=== PATIENT | female | born 1945 | race Caucasian/White ===

== ENCOUNTER → 2017-08-29 09:18 | Outpatient (CLI) | payer MEDICARE, OTHER, SELFPAY ==
--- NOTE | 2017-08-29 09:24 | US_ITS ---
STUDY: ABDOMINAL ULTRASOUND - RIGHT UPPER QUADRANT REASON FOR VISIT: Female, 71 years old. Epigastric pain. TECHNIQUE: Ultrasound evaluation of the right upper quadrant was performed with real-time and static velasquez-scale imaging. TECHNICAL QUALITY: Adequate. COMPARISON: None. FINDINGS: Liver: The liver measures 12.3 cm. There is normal echogenicity of the liver. The bile ducts are within normal limits. There is hepatic color flow. The direction of portal flow is hepatopetal. There is no demonstrated mass lesion. Gallbladder: Normal distended gallbladder. The gallbladder wall measures 3.0 mm. There is a negative sonographic Bain's sign. There is no pericholecystic fluid. There are no gallstones. Common Bile Duct (C.B.D.): The common bile duct measures 4.0 mm. Pancreas: Normal size of the head, body and tail of the pancreas. There is normal echogenicity of the pancreas. There is no demonstrated pancreatic mass or cyst. Right Kidney: Normal size of the right kidney. The right kidney measures 10.2 cm x 4.4 cm x 3.6 cm. Normal renal cortex. The right cortex measures 1.0 cm. There is a 1.8 cm x 1.7 cm x 1.8 cm cyst in the upper pole of the right kidney. There is no right hydronephrosis. US/Gallbladder IMPRESSION: 1.8 cm x 1.7 cm x 1.8 cm cyst in the upper pole of the right kidney. Electronically Signed: Bacilio Garcia MD at 11:21 EST Tel [phone], Service support ,
== END ==
PROVIDERS: Family Provider Nurse Practitioner; PCP Nurse Practitioner; Visit Provider Nurse Practitioner Gerontology
DX: Q61.01 Congenital single renal cyst (principal)
CPT/HCPCS: 76705

== ENCOUNTER → 2017-12-15 08:07 | Outpatient (CLI) | payer MEDICARE, OTHER, SELFPAY ==
--- NOTE | 2017-12-15 08:09 | RAD_ITS ---
STUDY: BARIUM ENEMA. REASON FOR EXAM: Female, 72 years old. Left upper quadrant pain and change in bowel habits. FLUOROSCOPY TIME (if supplied): (0:40) minutes/seconds TECHNIQUE: A hospitality manager film was obtained. Following this, barium was introduced retrograde through the colon. The entire colon was opacified. COMPARISON: None. FINDINGS: There is no evidence of antegrade or retrograde obstruction to the flow of contrast. No mass lesion is seen. Scattered residual fecal material is RAD/Barium Enema w/Air Contrast IMPRESSION: Unremarkable barium enema. Electronically Signed: Bacilio Garcia MD at 9:24 EDT Tel [phone], Service support ,
== END ==
PROVIDERS: Family Provider Nurse Practitioner; PCP Nurse Practitioner; Visit Provider Internal Medicine Gastroenterology
DX: R19.4 Change in bowel habit (principal)
CPT/HCPCS: 74280

== ENCOUNTER → 2018-01-15 17:26 | Outpatient (CLI) | payer MEDICARE, OTHER, SELFPAY ==
--- NOTE | 2018-01-15 17:30 | CT_ITS ---
STUDY: CT ABDOMEN AND PELVIS WITH CONTRAST REASON FOR EXAM: Female, 72 years old. Left upper quadrant discomfort for one year. Increasing pain over the past 3 months. Nausea. RADIATION DOSAGE (If Supplied By Facility): CTDIvol = ( 13.61 ) mGy, DLP = ( 636.53 ) mGycm TECHNIQUE: Transaxial images were obtained from the dome of the diaphragm to the symphysis pubis with oral contrast. 100CC ml of Isovue 300 contrast was administered. Sagittal and coronal images were reconstructed. Individualized dose optimization techniques were used for this CT. COMPARISON: Barium enema, December 15, 2017. CT of the chest, October 20, 2015. FINDINGS: The lungs are mildly hyperexpanded but without mass. The visualized portions of the heart are within normal limits. Normal liver. Normal gallbladder and extrahepatic biliary system. Normal spleen. Normal pancreas. Normal bilateral adrenal glands. There is a 1.8 cm cyst in the upper pole of an otherwise normal right kidney. There are scattered subcentimeter cysts in the left kidney. Normal bilateral ureters.. Normal visualized stomach. Normal small intestine. Large amount of feces in the distal colon without mass or obstruction. The appendix is visualized and appears normal. Normal abdominal aorta. Normal inferior vena cava. Normal retroperitoneum. The urinary bladder is collapsed but otherwise unremarkable. The uterus is small in size. There is no evidence of adnexal mass. No pelvic lymphadenopathy. No free air or free fluid is seen within the peritoneal cavity. Normal abdominal wall. Minimal degenerative changes on the lower lumbar spine. CT/Abdomen/Pelvis W IV Cont ONLY IMPRESSION: 1. Bilateral renal cysts. There is no other evidence of renal, ureteral or urinary bladder abnormality. 2. Increased colonic feces suggesting constipation. There is no evidence of colonic abnormality. 3. Mild hyper expansion of lungs without focal mass. 4. Mild degenerative changes of the lumbar spine. Electronically Signed: Junior Guerra DO at 9:54 EDT Tel [phone], Service support ,
[2018-01-15 17:51] LABS: CREATININE FINGERSTICK < 0.6 mg/dL (0.55-1.02); EGFR FINGERSTICK > 60.0000 mL/min (>60)
== END ==
PROVIDERS: Family Provider Nurse Practitioner; PCP Nurse Practitioner; Visit Provider Nurse Practitioner
DX: R10.9 Unspecified abdominal pain (principal)
CPT/HCPCS: 74177; Q9967

== ENCOUNTER → 2018-01-22 11:59 | Outpatient (CLI) | payer MEDICARE, OTHER, SELFPAY ==
--- NOTE | 2018-01-22 12:02 | BI_ITS ---
MAMMOGRAPHY - BILATERAL SCREENING REASON FOR EXAM: Female, 72 years old. Routine annual screening examination. PERTINENT HISTORY: Mother with breast cancer. TECHNIQUE: Digital bilateral breast dai (3D mammographic acquisition) in the CC and MLO projections. 2-D mediolateral oblique (MLO) and craniocaudad (CC) views of both breasts were obtained. CAD: Full Field Digital Mammography with Computer Added Detection was performed. COMPARISON: Comparison is made with prior study dated September 14, 2016 and February 14, 2015. FINDINGS: Breast Composition: The breasts are extremely dense, which lowers the sensitivity of mammography. There are no dominant masses or suspicious calcifications. No other significant abnormalities are identified. There has been no significant change since the prior study. BI/SCREENING MAMM (CAD), BILAT IMPRESSION: Stable bilateral screening mammogram. Yearly follow-up mammogram recommended. (A) ASSESSMENT CATEGORY: BIRADS Category 1: Negative. A letter regarding these results will be sent to the patient by the facility within 30 days. Approximately 10% of breast cancers are not detected by mammography. A normal mammogram should not delay biopsy of a clinically suspicious abnormality. [id number] Electronically Signed: Bacilio Garcia MD at 8:03 EDT Tel [phone], Service support ,
== END ==
PROVIDERS: Family Provider Nurse Practitioner; PCP Nurse Practitioner; Visit Provider Nurse Practitioner
DX: Z12.31 Encounter for screening mammogram for malignant neoplasm of breast (principal)
CPT/HCPCS: 77063; 77067

== ENCOUNTER → 2019-01-07 06:35 | Outpatient (CLI) | payer MEDICARE, OTHER, SELFPAY ==
--- NOTE | 2019-01-07 06:39 | CT_ITS ---
STUDY: CT BRAIN WITH AND WITHOUT CONTRAST REASON FOR EXAM: Female, 73 years old. One month history of vertigo and lightheadedness. RADIATION DOSAGE (If Supplied By Facility): CTDIvol = ( 44.99 ) mGy, DLP = ( 1513.48 ) mGycm TECHNIQUE: Transaxial CT imaging of the brain was performed pre and post contrast administration. The examination was performed with intravenous administration of 50mL IV Isovue 300. Individualized dose optimization techniques were used for this CT. COMPARISON: None. FINDINGS: Normal soft tissue structures. Normal calvarium. There is mild cerebral atrophy with widening of the extra-axial spaces and ventricular dilatation. Normal white matter tracts of the cerebral hemispheres. Old lacunar in the right thalamus. Normal brainstem. Normal cerebellum. There is no intracranial hemorrhage. There are no findings of an acute ischemic infarction. Normal visualized paranasal sinuses. CT/Brain/Head W/WO Contrast IMPRESSION: Chronic involutional changes of the brain. Old lacunar infarct in the right thalamus. Electronically Signed: Bacilio Garcai, at 10:12 EDT , Service support ,
== END ==
PROVIDERS: Family Provider Nurse Practitioner; PCP Nurse Practitioner; Referring Provider Nurse Practitioner; Visit Provider Nurse Practitioner
DX: H81.399 Other peripheral vertigo, unspecified ear (principal)
CPT/HCPCS: 70470; Q9967

== ENCOUNTER 2019-02-02 13:30 | Outpatient (RCR) | payer MEDICARE, OTHER, SELFPAY ==
--- NOTE | 2018-12-08 13:41 | HP.PTEVAL_ITS ---
Patient's Visit Information ADILENE ANDREWS is a 73 year old F referred to Physical Therapy by Erica Youngblood NP with a diagnosis of vertigo. Date of Evaluation: 12/08/18 Physical Therapist: Silver Calix, BERRY, OCS, CSCS - Visit Plan Frequency: 1-2x /Week Duration: 2-4 Weeks Plan: 1-2x/week for 2-4 weeks for positional treatments adn exercises. - Subjective Findings: Friday started feeling uneasy, thought it was low blood pressure but it wasn't. Friday got up and was wobbly walking at the [employer]. Went to [facility] in clinic adn had vertigo. Given flonase puffs daily and [place] exercises 5x/day. Thought it was possibly from too much salt. Last Friday called [facility] for therapy. Now some days worse than others. Past Friday was worse. No falls. Not wobbly. Gets uneasyness often and worse at times without pattern. No spinning. Lying down feels pretty normal. Up and about uneasy much of time. Spends time exercising at [employer] adn computer work and reasding and visit. Enjoys shopping adn seems OK with it. Doesn't move head fast due to this uneasy feeling. This has slowed her actions down. Otherwise activities normal lately except for uneasy feeling and slowness. Bending can be worse. - Objective + L hallpike 35 sec downward torsional nystagmus., treated with L Radha x 3. Walks well with good balance, trasnfers I. C/S AROM WNL and without pain. Improving hallpike with Treatment but not gone. - Balance Scores Functional Gait Assessment Score: 28 % Disability: 6.6700 CATSIB Score (Max score 120 seconds): 120 - Goals Goal 1:: Pt feel 100% back to normal without uneasyness adn normal speed of function. Goal Time Frame: 4-6 Weeks - Rehabilitation Potential Physical Therapy Diagnosis: BPPV Rehabilitation Potential: Good - Anticipated Interventions Patient/Client Instruction: Educate patient on: Condition, Plan of Care For the Purpose of:: To increase tolerance to activity/condition/position Comment: vestibular ex as needed For the Purpose of:: To increase tolerance to activity/condition/position, To improve gait and locomotor functions Thank you for the opportunity to evaluate your patient. For Medicare and Medicare HMO plans, please review the plan of care and approve it. It will need to be FAXED BACK to us at [phone] for Medicare purposes. For Medicare only, by signing this I certify the plan of care. Please let me know if there are questions or concerns regarding this plan of care. Physician Signature: Date:
--- NOTE | 2018-12-31 12:51 | HP.PTDCSUM ---
HP - PT D/C Summary It has been my pleasure to treat ADILENE ANDREWS under orders from Erica Youngblood NP, for the diagnosis of vertigo for a total of 5 visit(s). Discharge Date: 12/31/18 Please see the following information for a summary of their discharge status. - Subjective Subjective: Bad day last Friday. Not much different the next day. Friday OK until after exercises. Slightly better as the week went on. No spinning, just light headed. Feels lightheaded most of time when moving around but slight. Has to be more careful of steps. Bending can still make her worse for short duration. Doing 8 reps BD daily and feels slightly better overall. - Overall Improvement % Improvement: 70 - Objective Objective/Function: - B hallpike today. - roll test. Balance is excellent. MSQ positions do not create dizzyness increase - Goals Goal 1:: Pt feel 100% back to normal without uneasyness adn normal speed of function. Goal Progress: Progressing - Plan Plan: D/C, pt back to doctor for next step. - D/C Information Discharge Comments: Pt back to doctor for next step. Still has lightheadedness without positional reason or sensitivity and without balance deficits. Will contact doctor office for recheck. If there are questions or concerns regarding this patient's physical therapy, please feel free to call me at [phone]. Thank you for the referral of this patient. Sincerely, Silver Calix, DPT, OCS, CSCS
--- NOTE | 2019-05-13 10:06 | HP.PT.NRP ---
HP - Discharge Summary (1) - Patient Information ADILENE ANDREWS was seen in my office for initial evaluation on 12/08/18. The following Plan of Care was established for this patient: Initial Frequency: 1-2x /Week Initial Duration: 2-4 Weeks - Anticipated Interventions Patient/Client Instruction: Educate patient on: Condition, Plan of Care For the Purpose of:: To increase tolerance to activity/condition/position For the Purpose of:: To increase tolerance to activity/condition/position, To improve gait and locomotor functions This patient was last seen in our office 02/02/19. Pertinent comments regarding their Physical therapy will appear below: Pt seen 8 visits and treated with 80% improvement. She was to f/u two weeks after last visit but did nto schedule or attend. It has been over 2 months and I will discontinue due to nonattendance. At this point I will be discontinuing this patient from physical therapy. I would be happy to see this patient again in the future if found appropriate by the physician. Thank you! Silver Calix, DPT, OCS, CSCS
== END 2019-02-02 19:00 | disposition home or self-care (01) ==
LOC: PT 13:30
PROVIDERS: Family Provider Nurse Practitioner; PCP Nurse Practitioner; Referring Provider Nurse Practitioner; Visit Provider Nurse Practitioner
DX: R42 Dizziness and giddiness (principal)
CPT/HCPCS: 97161; 97530

== ENCOUNTER → 2019-02-24 12:52 | Outpatient (CLI) | payer MEDICARE, OTHER, SELFPAY ==
--- NOTE | 2019-02-24 12:56 | ECHOD_ITS ---
Reason For Study: CHLOE Procedure This was a 2D Doppler, Color Flow transthoracic echocardiogram. Exam performed in department. Left Ventricle Normal size and thickness. The estimated ejection fraction is 65 %. Stage 1 diastolic dysfunction. No regional wall motion abnormalities noted. Right Ventricle Normal size and thickness. Normal systolic function. Atria Normal left atrium. Normal right atrium. Hypermobile atrial septum. Saline contrast study demonstrates trivial right to left interatrial shunt. Mitral Valve The mitral valve is structurally normal. No prolapse or stenosis seen. Trivial mitral valve insufficiency. Tricuspid Valve Normal tricuspid valve. Mild (1+) tricuspid valve insufficiency. Right ventricular systolic pressure estimated to be 40 mmHg. Aortic Valve Trisinus/trileaflet aortic valve. Trivial aortic valve insufficiency. Pulmonic Valve Normal pulmonic valve. Great Vessels Normal aortic root. Normal arch. Normal inferior vena cava. Inferior vena cava collapse with sniff. Pericardium/Pleural No pericardial effusion. MMode/2D Measurements & Calculations LVIDd: 4.1 cm IVSd: 0.65 cm Ao root diam: 3.0 cm LVIDs: 2.9 cm LVPWd: 0.68 cm RVDd: 3.2 cm FS: 29.0 % LAV(MOD-bp): 28.1 ml LA A4 area: 13.2 cm2 LA dimension(2D): 2.7 cm LAV(MOD-bp) Indexed: 18.1 ml/m2 LAV(MOD-sp2): 26.2 ml LAV(MOD-sp4): 30.5 ml RA A4 area: 17.4 cm2 Time Measurements MV dec time: 0.17 sec Doppler Measurements & Calculations MV E max jose d: 66.1 cm/sec Lat Peak E' Jose D: 7.3 cm/sec Med Peak E' Jose D: 6.6 cm/sec MV A max jose d: 78.6 cm/sec E/E' lat: 9.0 E/E' med: 10.0 MV E/A: 0.84 Ao V2 max: 111.0 cm/sec LV V1 max: 86.4 cm/sec PA V2 max: 105.7 cm/sec Ao max P.9 mmHg LV V1 max P.0 mmHg TR max jose d: 271.4 cm/sec TR max P.8 mmHg Interpretation Summary The estimated ejection fraction is 65 %. Stage 1 diastolic dysfunction. Hypermobile atrial septum with trivial R to L color flow noted. Trivial mitral valve insufficiency. Mild (1+) tricuspid valve insufficiency. Right ventricular systolic pressure estimated to be 40 mmHg. Trivial aortic valve insufficiency. Compared to echo report dated 09/19/2016, LV function has remained the same, but RVSP has increased from 28 to 40 mm Hg. Ordering Physician: Gustavo Schwartz Referring Physician: Gustavo Schwartz Performed By: Danika Forman RDCS
--- NOTE | 2019-02-24 12:56 | CDU_ITS ---
Reason For Study: DIZZINESS Rt. Velocities/BP Lt. Velocities/BP Prox CCA 98/13 cm/sec. Prox CCA 102/35 cm/sec. Mid CCA 87/21 cm/sec. Mid CCA 100/33 cm/sec. Dist CCA 101/27 cm/sec. Dist CCA 86/25 cm/sec. Prox ICA 98/20 cm/sec. Prox ICA 67/18 cm/sec. Mid ICA 94/28 cm/sec. Mid ICA 111/35 cm/sec. Dist ICA 62/20 cm/sec. Dist ICA 80/29 cm/sec. Rt. ICA/CCA = 1.0. Lt. ICA/CCA = 1.1. Prox ECA 89/15 cm/sec. Prox ECA 75/13 cm/sec. Rt. Vert. 43/16 cm/sec. Lt. Vert. 66/18 cm/sec. Right Extracranial There is homogeneous, smooth atherosclerotic plaque noted in the right common carotid artery. There is homogeneous, smooth atherosclerotic plaque noted in the right internal carotid artery. There is homogeneous, smooth atherosclerotic plaque noted in the right external carotid artery. Antegrade flow is noted in the right vertebral artery. Left Extracranial There is homogeneous, smooth atherosclerotic plaque noted in the left common carotid artery. There is homogeneous, smooth atherosclerotic plaque noted in the left internal carotid artery. There is homogeneous, smooth atherosclerotic plaque noted in the left external carotid artery. Antegrade flow is noted in the left vertebral artery. Procedure Carotid Duplex [id number]. Exam performed in department. Interpretation Summary Mild (<50%) stenosis right extracranial internal carotid. Mild (<50%) stenosis left extracranial internal carotid. Flow within the vertebral arteries is antegrade bilaterally. Ordering Physician: Gustavo Schwartz Referring Physician: RAS PIERCE Performed By: Estephanie Rosenberg, RDCS, RVT
== END ==
PROVIDERS: Family Provider Nurse Practitioner; PCP Nurse Practitioner; Referring Provider Psychiatry & Neurology Neurology; Visit Provider Psychiatry & Neurology Neurology
DX: Z86.73 Personal history of transient ischemic attack (TIA), and cerebral infarction without residual deficits (principal); G47.33 Obstructive sleep apnea (adult) (pediatric); R42 Dizziness and giddiness
CPT/HCPCS: 93306; 93880

== ENCOUNTER → 2019-04-16 15:56 | Outpatient (CLI) | payer MEDICARE, OTHER, SELFPAY ==
[2019-04-16 17:08] LABS: CRP < 2.90 mg/L (0.0-3.0)
[2019-04-16 17:24] LABS: Homocysteine 7.9 umol/L (3.2-10.7)
[2019-04-16 17:28] LABS: Erythrocyte Sedimentation Rate 17 mm/hr (0-30)
[2019-04-16 17:33] LABS: International Normalized Ratio 1.1; Prothrombin Time (Protime)PT. 13.8 SECONDS (11.7-14.9)
[2019-04-16 17:34] LABS: Partial Thromboplast Time 29.1 Seconds (24.1-36.2)
[2019-04-22 08:09] LABS: Dilute Prothrombin Time (dPT) 30.2 sec (0.0-55.0); Dilute Russell Viper Venom 31.9 sec (0.0-47.0); dPT Confirm Ratio 1.27 Ratio (0.00-1.40)
[2019-04-22 16:14] LABS: Anti-Cardiolipin Ab, IgA, Qn 10 APL U/mL (0-11); Anti-Cardiolipin Ab, IgG, Qn 20 GPL U/mL (0-14); Anti-Cardiolipin Ab, IgM, Qn 10 MPL U/mL (0-12); Interpretation Comment: (.)
== END ==
PROVIDERS: Family Provider Nurse Practitioner; PCP Nurse Practitioner; Referring Provider Psychiatry & Neurology Neurology; Visit Provider Psychiatry & Neurology Neurology
DX: R42 Dizziness and giddiness (principal); G47.33 Obstructive sleep apnea (adult) (pediatric); R27.0 Ataxia, unspecified; Q21.1 Atrial septal defect; Z86.73 Personal history of transient ischemic attack (TIA), and cerebral infarction without residual deficits
CPT/HCPCS: 36415; 81241; 83090; 85610; 85652; 85730; 86140; 86147

== ENCOUNTER → 2019-08-03 14:00 | Outpatient (CLI) | payer MEDICARE, OTHER, SELFPAY ==
--- NOTE | 2019-08-03 14:02 | BI_ITS ---
MAMMOGRAPHY - BILATERAL SCREENING 3-D TOMOSYNTHESIS REASON FOR EXAM: Female, 73 years old. FAM HX MOTHER HAD PRECANCEROUS BREAST CELLS AGE 85 NIECE AGE 60 -- PT GAINED 5LB -- NO PREV SX/BX TOLERATES VERY LITTLE COMPRESSION PERTINENT HISTORY: No significant family history. TECHNIQUE: 2-D mammograms and 3-D Tomosynthesis of the breast (s) were performed. CAD was performed. COMPARISON: January 22, 2018. FINDINGS: The breast composition is heterogeneously dense that can obscure small breast masses. Scattered benign calcifications are seen. No dense spiculated masses or suspicious microcalcifications are identified. No architectural distortion is identified. There is no skin thickening or retraction. There has been no significant change since the prior study. BI/SCREEN MAMM (CAD) W/JESSICA BILAT IMPRESSION: No mammographic signs of malignancy. Routine yearly mammograms recommended. ASSESSMENT CATEGORY: BIRADS Category 1: Negative. A letter regarding these results will be sent to the patient by the facility within 30 days. FOLLOW UP RECOMMENDATION: Yearly follow up mammogram recommended. (A) Approximately 10% of breast cancers are not detected by mammography. A normal mammogram should not delay biopsy of a clinically suspicious abnormality. Electronically Signed: Cam Roman MD at 9:22 EST , Service support ,
--- NOTE | 2019-08-03 14:21 | BD_ITS ---
STUDY: DUAL ENERGY X-RAY ABSORPTIOMETRY / DXA REASON FOR EXAM: Female, 73 years old. 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 COMPARISON: Comparison is made with prior examination dated February 19, 2017 and February 14, 2015. FINDINGS: Lumbar Spine (L1-L4): g/cm2 (1.000) / T-score (-1.4) / Z-score (0.3) Findings are suggestive of osteopenia with a low fracture risk. Left Femur Total: g/cm2 (0.856) / T-score (-1.2) / Z-score (0.3) Left Femoral Neck: g/cm2 (0.797) / T-score (-1.7) / Z-score (0.0) Right Femur Total: g/cm2 (0.907) / T-score (-0.8) / Z-score (0.7) Right Femoral Neck: g/cm2 (0.843) / T-score (-1.4) / Z-score (0.4) The T-Scores on the most recent prior examination were: Lumbar Spine (L1-L4): There has been improvement of bone density since the previous examination. Left Femur Total: which represents an improvement of 0.1%. Right Femur Total: which represents an improvement of 0.3%. BD/Dexa Bone Density Study IMPRESSION: The patient is considered osteopenic as outlined below according to World Bam Organization (WHO) criteria with a moderate fracture risk. There has been improvement of bone density since the previous examination. Reference Information: The T-score is the number of standard deviations above or below the standard which is normal for young adults at their peak bone mineral density. The World Health Organization (WHO) interprets the T-scores as follows: Above -1 Normal bone density Between -1 and -2.5 Osteopenia Equal to / or below -2.5 Osteoporosis As a practical clinical guideline, osteopenia may be graded as follows: Mild -1 through -1.5 Moderate -1.6 through -2.0 Severe -2.1 through -2.4 The Z-score is the number of standard deviations above or below age-matched controls. A Z-score of less than -1.5 would be considered abnormal. References: 1. NIH Osteoporosis and Related Bone Diseases http://www.osteo.org 2. International Society for Clinical Densitometry http://www.iscd.org 3. National Osteoporosis Foundation http://www.nof.org Electronically Signed: Bacilio Garcia, at 10:16 EST , Service support ,
== END ==
PROVIDERS: Family Provider Nurse Practitioner; PCP Nurse Practitioner; Referring Provider Nurse Practitioner; Visit Provider Nurse Practitioner
DX: Z12.31 Encounter for screening mammogram for malignant neoplasm of breast (principal); Z13.820 Encounter for screening for osteoporosis; Z78.0 Asymptomatic menopausal state
CPT/HCPCS: 77063; 77067; 77080

== ENCOUNTER → 2019-09-07 11:27 | Outpatient (CLI) | payer MEDICARE, OTHER, SELFPAY | PROVIDERS: PCP Nurse Practitioner; Referring Provider Nurse Practitioner; Visit Provider Nurse Practitioner | DX: R42 Dizziness and giddiness (principal) | CPT/HCPCS: 93225; 93226 ==

== ENCOUNTER → 2021-03-01 15:16 | Outpatient (CLI) | payer MEDICARE, OTHER, SELFPAY ==
--- NOTE | 2021-03-01 15:24 | RAD_ITS ---
STUDY: X-RAY - LEFT WRIST REASON FOR EXAM: Female, 75 years old. PAIN TECHNIQUE: 3 view(s) of the wrist were obtained. COMPARISON: None. FINDINGS: Normal visualized distal radius and ulna. Normal radiocarpal articulation. Normal distal radioulnar articulation. Normal carpal bones. Normal carpal articulations. There is severe degenerative arthrosis of the carpometacarpal articulation of the thumb with subluxation. Normal second through fifth carpometacarpal articulations. Normal visualized metacarpal bones. The soft tissue structures are unremarkable. 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
== END ==
PROVIDERS: PCP Nurse Practitioner; Referring Provider Internal Medicine; Visit Provider Internal Medicine
DX: M25.532 Pain in left wrist (principal)
CPT/HCPCS: 73110

== ENCOUNTER 2021-08-09 09:50 | Outpatient (CLI) | payer MEDICARE, OTHER, SELFPAY ==
--- NOTE | 2021-08-09 09:54 | BI_ITS ---
MAMMOGRAPHY - BILATERAL SCREENING REASON FOR EXAM: Female, 75 years old. Routine annual screening examination. PERTINENT HISTORY: Mother with breast cancer. TECHNIQUE: Digital bilateral breast jessica (3D mammographic acquisition) in the CC and MLO projections. 2-D mediolateral oblique (MLO) and craniocaudad (CC) views of both breasts were obtained. CAD: Full Field Digital Mammography with Computer Added Detection was performed. COMPARISON: Comparison is made with prior examination dated 08/03/2019 and 01/22/2018. FINDINGS: Breast Composition: The breasts are extremely dense, which lowers the sensitivity of mammography. There are no dominant masses or suspicious calcifications. No other significant abnormalities are identified. There has been no significant change since the prior study. BI/SCRN MAMM (CAD)W/JESSICA BILAT IMPRESSION: Stable bilateral screening mammogram. Yearly follow-up mammogram recommended. (A) ASSESSMENT CATEGORY: BIRADS Category 1: Negative. A letter regarding these results will be sent to the patient by the facility within 30 days. Approximately 10% of breast cancers are not detected by mammography. A normal mammogram should not delay biopsy of a clinically suspicious abnormality. [id number] Electronically Signed: Bacilio Garcia MD at 11:07 EST , Service support ,
--- NOTE | 2021-08-09 10:00 | BD_ITS ---
STUDY: DUAL ENERGY X-RAY ABSORPTIOMETRY / DXA REASON FOR EXAM: Female, 75 years old. [id number]. Patient is postmenopausal. TECHNIQUE: Bone Mineral Density (BMD) measurements of lumbar spine and bilateral hips were obtained. COMPARISON: Comparison is made with prior study dated 08/03/2019. FINDINGS: Lumbar Spine (L1-L4): g/cm2 (0.826) / T-score (-2.0) / Z-score (0.3) Findings are suggestive of osteopenia with a moderate fracture risk. Left Femur Total: g/cm2 (0.804) / T-score (-1.1) / Z-score (0.6) Left Femoral Neck: g/cm2 (0.662) / T-score (-1.7) / Z-score (0.3) Right Femur Total: g/cm2 (0.812) / T-score (-1.1) / Z-score (0.6) Right Femoral Neck: g/cm2 (0.656) / T-score (-1.7) / Z-score (0.3) The T-Scores on the most recent prior examination were: Lumbar Spine (L1-L4): There has been worsening of bone density since the previous examination. Left Femur Total: which represents an improvement of 1.3%. Right Femur Total: which represents a worsening of 3.8%. BD/Dexa Bone Density Study IMPRESSION: The patient is considered osteopenic as outlined below according to World Bam Organization (WHO) criteria with a moderate fracture risk. There has been worsening of bone density since the previous examination. Reference Information: The T-score is the number of standard deviations above or below the standard which is normal for young adults at their peak bone mineral density. The World Health Organization (WHO) interprets the T-scores as follows: Above -1 Normal bone density Between -1 and -2.5 Osteopenia Equal to / or below -2.5 Osteoporosis As a practical clinical guideline, osteopenia may be graded as follows: Mild -1 through -1.5 Moderate -1.6 through -2.0 Severe -2.1 through -2.4 The Z-score is the number of standard deviations above or below age-matched controls. A Z-score of less than -1.5 would be considered abnormal. References: 1. NIH Osteoporosis and Related Bone Diseases www osteo.org 2. International Society for Clinical Densitometry www iscd.org 3. National Osteoporosis Foundation www nof.org Electronically Signed: Bacilio Garcia MD at 12:04 EST , Service support ,
== END 2021-08-09 23:59 | disposition short-term general hospital (02) ==
LOC: OPBD 09:51
PROVIDERS: PCP Nurse Practitioner; Visit Provider Nurse Practitioner
DX: Z12.31 Encounter for screening mammogram for malignant neoplasm of breast (principal); Z78.0 Asymptomatic menopausal state
CPT/HCPCS: 77063; 77067; 77080

== ENCOUNTER 2021-09-09 12:15 | Emergency (ER) | payer MEDICARE, OTHER, SELFPAY ==
[2021-09-09 12:19] VITALS: BP 171/83; PULSE 73; RESP 17; TEMP 35.9; O2SAT 99; BMI 23.8
--- NOTE | 2021-09-09 12:27 | VDLE_ITS ---
Reason For Study: Pain RIGHT GSV is normal. CFV is compressible, spontaneous, phasic, competent and demonstrates normal augmentation. FV is compressible, spontaneous, phasic, competent and demonstrates normal augmentation. POP V is compressible, spontaneous, phasic, competent and demonstrates normal augmentation. T/P Trunk is compressible. PTV is compressible. RT PerV is compressible. Procedure Exam performed portable in ED. This is a venous duplex using B-mode, color flow and spectral Doppler. A preliminary report was called and/or faxed to Dr. Cummings. VL/Venous Duplex US, Unilateral Interpretation Summary There is no evidence of right lower extremity deep vein thrombosis. Right great saphenous vein appears patent and compressible segmentally. Ordering Physician: Lissette Cummings Referring Physician: Erica Youngblood Performed By: Breanna Crowe, JUDY, RVT
--- NOTE | 2021-09-09 12:35 | EX.ED.DYSGE1 ---
HPI History of Present Illness Chief Complaint: Lower Extremity Injury Detail of Chief Complaint: Right leg pain Informant: patient Onset/Context/Timing Onset: Weeks Context: Gradual Onset Current Severity: Moderate Maximum Severity: Moderate Narrative Narrative: Patient presents with right lower extremity pain has been ongoing for the past 3 weeks. Pain is been waxing and waning. She was seen by her PCP last week and was given a cream to use on her knees and had a knee x-ray performed. Today at [facility] [place] walking she had increased pain and actually had difficulty weightbearing. She points to different areas of her calf as well as her medial thigh describing the areas of pain. No paresthesias. No swelling. [facility] Medical History Hypothyroidism Home Medications aspirin 81 mg PO DAILY 09/09/21 [History Last Taken Unknown] hydrocodone-acetaminophen 1 tab PO Q8H PRN 3 Days #10 tab 09/09/21 [Rx Last Taken Unknown] levothyroxine 25 mcg PO DAILY 09/09/21 [History Last Taken Unknown] polyethylene glycol 3350 [Miralax] 17 g PO DAILY 09/09/21 [History Last Taken Unknown] Allergy/AdvReac Type Severity Reaction Status Date / Time Penicillins Allergy Hives Verified 09/09/21 12:17 Social History Smoking Status: Never smoker ROS ROS ED Constitutional Constitutional ED: Denies chills or fever(s) Eyes Eyes: Denies change in vision ENT ENT ED: Denies sore throat Cardiovascular Cardiovascular: Denies chest pain Respiratory/Chest Respiratory/Chest: Denies cough or dyspnea Gastrointestinal Gastrointestinal: Denies abdominal pain, diarrhea, nausea or vomiting Genitourinary Genitourinary ED: Denies dysuria Musculoskeletal Musculoskeletal: Reports arthralgias; Denies back pain Integumentary Denies rash Neurologic Neurologic: Denies headache(s), paresthesias or weakness Allergic/Immunologic Allergic/Immunologic ED: Denies urticaria EXAM Physical Exam Const Vital Signs: 09/09/21 12:19 Temperature 96.7 F L Temperature Source Temporal Pulse Rate 73 Respiratory Rate 17 Blood Pressure 171/83 H Blood Pressure Mean 112 Pulse Ox 99 Oxygen Delivery Method Room Air Positive well nourished and well developed General Appearance ED: well developed HEENT Reports moist mucous membranes Eyes PERRL and EOMs intact bilaterally Neck supple Chest Wall inspection of chest normal and palpation of chest normal Resp normal respiratory effort and clear to auscultation bilaterally Cardio regular rate and regular rhythm GI non-tender Palpation: soft Extremity normal to inspection Extremity Narrative: No lower extremity edema noted. No focal tenderness with palpation of the right lower extremity. Strong distal pulses. No skin changes. Neuro oriented x3 Sensorium / Orientation: alert Psych mental status grossly normal Skin no rashes or lesions noted MDM MDM MDM Narrative Medical decision making narrative: I did review the x-rays of the knee patient has performed this week. Right lower extremity ultrasound ordered. Treatment and Re-Evaluation Comments:: Right lower extremity venous ultrasound reveals no evidence of DVT. Test results discussed with the patient. She is a walker at home that she can use to help her get around. I will write her for [place] that she can use as needed. She is to follow-up with her PCP this week. Discharge Plan Triage Chief Complaint: Lower Extremity Injury ED Provider: Lissette Cummings Dx/Rx/DC Orders Clinical Impression: Pain in right leg Instructions: ED Muscle Strain, Extremity Prescriptions: New hydrocodone-acetaminophen 5-325 mg tablet 1 tab PO Q8H PRN (Reason: pain) 3 Days Qty: 10 RF: 0 No Action polyethylene glycol 3350 [Miralax] 17 gram Powder In Packet 17 g PO DAILY RF: 0 levothyroxine 25 mcg tablet 25 mcg PO DAILY RF: 0 aspirin 81 mg Capsule 81 mg PO DAILY RF: 0 Primary Care Provider: Erica Youngblood NP Referrals: Erica Yonugblood WEAPONS ENGINEER, WEAPONS ENGINEER-C [Primary Care Provider] - 3-5 Days if not improving Disposition Disposition: Home, Self Care
[2021-09-09 13:59] VITALS: BP 176/86; PULSE 82; RESP 15; O2SAT 98
== END 2021-09-09 23:59 | disposition home or self-care (01) ==
PROVIDERS: Emergency Provider Emergency Medicine; PCP Nurse Practitioner; Visit Provider Emergency Medicine
DX: M79.604 Pain in right leg (principal); E03.9 Hypothyroidism, unspecified; Z79.82 Long term (current) use of aspirin; Z79.899 Other long term (current) drug therapy
CPT/HCPCS: 93971; 99282

== ENCOUNTER → 2021-12-24 | Outpatient (CLI) | payer MEDICARE, OTHER, SELFPAY ==
[2021-12-24 15:20] LABS: Absolute Lymphocyte Count 1.57 X10^3/uL (0.83-4.51); Absolute Neutrophil Count 2.6 X10^3/uL (2.0-7.7); Basophil# 0.01 X10^3/uL; Basophil% 0.2 % (0-1); Eosinophil# 0.04 X10^3/uL; Eosinophils% 0.9 % (0-5); Hematocrit 38.3 % (37-47); Hemoglobin 12.5 g/dL (12.0-15.0); Lymphocyte # 1.57 X10^3/ul (0.83-4.51); Lymphocyte % 34.1 % (19-41); Mean Corp Hgb Conc 32.6 g/dL (32-36); Mean Corpuscular Hgb 30.6 pg (27.0-32.0); Mean Corpuscular Volume 93.6 fL (81-99); Mean Platelet Vol. 11.3 fl (6.2-12.0); Monocyte# 0.36 X10^3/uL; Monocyte% 7.8 % (0-10); NRBC Flagged by Analyzer 0 % (0-5); Neutrophil # 2.62 X10^3/uL (2.7-7.7); Neutrophil % 56.8 % (47-70); Platelet Count 276 K/mm3 (150-450); RBC Distribution Width CV 13.7 % (11.6-14.6); RBC Distribution Width SD 46.9 fl (35.1-43.9); Red Blood Count 4.09 M/mm3 (4.2-5.4); White Blood Count 4.6 K/mm3 (4.4-11.0)
[2021-12-24 15:37] LABS: Vitamin D,25 Hydroxy 56.8 ng/mL
[2021-12-24 15:53] LABS: AST(SGOT) 25 U/L (15-37); Alanine Aminotransfer ALT/SGPT 25 U/L (13-56); Albumin, Serum 3.9 g/dL (3.2-5.0); Alkaline Phosphatase 79 U/L (45-117); Anion Gap 7 (5-15); BUN 12 mg/dL (7-18); BUN/Creat Ratio 14.2 RATIO (10-20); Calcium,Total 8.7 mg/dL (8.5-10.1); Chloride 101 mmol/L (98-107); Cholesterol 188 mg/dL (200); Creatinine, Serum 0.85 mg/dL (0.55-1.02); EST Glomerular Filtration Rate 70 mL/min (>60); Est Glom Filt Rate - Afr Amer 84 mL/min (>60); Globulin 4.1 g/dL (2.2-4.2); Glucose 88 mg/dL (74-106); High Density Lipoprotein 102 mg/dL; Sodium Level 134 mmol/L (136-145); Thyroid Stim Hormone (TSH) 3.39 uIU/mL (0.358-3.74); Triglycerides 115 mg/dL; Very Low Density Lipoprotein 23 mg/dL (5-40)
[2021-12-24 19:43] LABS: T4 Free Direct 1.09 ng/dL (0.76-1.46)
== END | disposition home or self-care (01) ==
LOC: BIMLAB 11:42
PROVIDERS: Internal Medicine Endocrinology, Diabetes & Metabolism; PCP Internal Medicine; Referring Provider Internal Medicine; Visit Provider Internal Medicine
DX: E03.8 Other specified hypothyroidism (principal); E06.3 Autoimmune thyroiditis; E03.9 Hypothyroidism, unspecified; E55.9 Vitamin D deficiency, unspecified
CPT/HCPCS: 36415; 80053; 80061; 82306; 84439; 84443; 85025

== ENCOUNTER → 2022-02-07 | Outpatient (CLI) | payer MEDICARE, OTHER, SELFPAY ==
[2022-02-07 12:33] LABS: T4 Free Direct 0.97 ng/dL (0.76-1.46); Thyroid Stim Hormone (TSH) 6.12 uIU/mL (0.358-3.74)
== END | disposition home or self-care (01) ==
LOC: MTLAB 10:19
PROVIDERS: PCP Internal Medicine; Referring Provider Internal Medicine Endocrinology, Diabetes & Metabolism; Visit Provider Internal Medicine Endocrinology, Diabetes & Metabolism
DX: E03.8 Other specified hypothyroidism (principal); E06.3 Autoimmune thyroiditis
CPT/HCPCS: 36415; 84439; 84443

== ENCOUNTER → 2022-03-19 | Outpatient (CLI) | payer MEDICARE, OTHER, SELFPAY ==
--- NOTE | 2022-03-19 10:04 | RAD_ITS ---
INDICATION: fall, pain in coccyx EXAMINATION/TECHNIQUE: X-RAY - XR Sacrum/Coccyx Min 2 Views COMPARISON: 08/28/2017. FINDINGS: Grade 1 anterolisthesis of L4 over L5, grade 2 anterolisthesis of L5 over S1. Degenerative endplate changes of the lumbar vertebral bodies. Increased density visualized in the posterior column consistent with extensive hypertrophic changes in the facet joints. SACRUM/COCCYX: No displaced fracture, destructive or sclerotic lesions. Note that overlapping bowel shadows may however obscure fine detail in the frontal view. SACRO-ILIAC JOINTS: The articular structures are unremarkable. SOFT TISSUES: No soft tissue swelling or gas. RAD/Sacrum-Coccyx min 2 Views IMPRESSION: Extensive degenerative changes of the lumbar spine. Electronically Signed: Ovi Shoemaker MD at 12:18 EDT ,
== END | disposition home or self-care (01) ==
LOC: MTRAD 10:04
PROVIDERS: PCP Internal Medicine; Referring Provider Physician Assistant; Visit Provider Physician Assistant
DX: M53.3 Sacrococcygeal disorders, not elsewhere classified (principal); W19.XXXA Unspecified fall, initial encounter
CPT/HCPCS: 72220

== ENCOUNTER 2022-04-23 07:27 | Day surgery (SDC) | payer MEDICARE, OTHER, SELFPAY ==
[2022-04-23] VITALS (7 sets, daily range): BP systolic 57–151; BP diastolic 48–86; PULSE 75–89; RESP 16–18; TEMP 36.6–36.9; O2SAT 94–97; BMI 25.2
[2022-04-23] MEDS: Lactated Ringers 1,000 ML 15 ML IV (07:40)
--- NOTE | 2022-04-23 08:19 | PCM.HP.BLA ---
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 Required: No Is patient in pain?: No Allergies amoxicillin Allergy (Intermediate, Verified 03/27/22 14:33) hivesanimal dander Allergy (Intermediate, Verified 03/27/22 14:33) sneeze,runny nosehouse dust Allergy (Intermediate, Verified 03/27/22 14:33) sneeze,runny nosePenicillins Allergy (Verified 03/27/22 14:33) Hivesclarithromycin [From Biaxin] Adverse Reaction (Severe, Verified 03/27/22 14:33) nausea,vomitinghydrocodone Adverse Reaction (Severe, Verified 03/27/22 14:33) nausea,vomitingmold Adverse Reaction (Intermediate, Verified 03/27/22 14:33) sneeze,runny nose Medications aspirin 81 mg capsule 81 mg PO DAILY 09/09/21 [History Confirmed 03/27/22] polyethylene glycol 3350 17 gram oral powder packet (Miralax) 17 g PO DAILY 09/09/21 [History Confirmed 03/27/22] ascorbic acid (vitamin C) 1,000 mg tablet 1 g PO Q6H 11/26/21 [History Confirmed 03/27/22] calcium carbonate 300 mg (750 mg) chewable tablet (Calcium Antacid) 300 mg PO TID 11/26/21 [History Confirmed 03/27/22] multivitamin (Daily Multi-Vitamin tablet) 1 tab PO DAILY 11/26/21 [History Confirmed 03/27/22] diphenhydramine HCl 25 mg capsule (Benadryl) 25 mg PO QHS PRN 12/24/21 [History Confirmed 03/27/22] flaxseed 1,000 mg capsule mg PO 12/24/21 [History Confirmed 03/27/22] cholecalciferol (vitamin D3) 25 mcg (1,000 unit) capsule 50 mcg PO DAILY 03/06/22 [History Confirmed 03/27/22] pantoprazole 40 mg tablet,delayed release 40 mg PO BID #180 tabs 03/06/22 [Rx Confirmed 03/27/22] levothyroxine 50 mcg tablet 50 mcg PO DAILY #96 tabs 03/21/22 [Rx Confirmed 03/27/22] PFSH Medical History? 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 History of eye surgery Family History? Mother Hypertension AneurysmFather Heart disease Myocardial infarction HypertensionBrother Cancer ?? ? prostate Hypertension High cholesterol CVA (cerebral vascular accident) Thyroid disorderSister Diabetes Hypertension High cholesterol CVA (cerebral vascular accident) Thyroid disorderOther Arthritis Autoimmune disorder Blood clot in vein Osteoporosis Social History? Smoking Status:? Never smoker alcohol intake:? never substance use type:? does not use what type of physical activity do you participate in:? walking and weight training HPI HPI HPI: ADILENE ANDREWS, is a 76 F who presents to the office today for surgical consultation regarding belching.? The patient just recently was seen by Dr. Annie Ruiz on March 11, 2022.? She has been previously on omeprazole 40 mg but did not notice much change.? She was then more recently initiated on 40 mg of pantoprazole twice daily.? Patient complains of intermittent excessive flatus.? She does take daily MiraLAX.? The patient was offered a esophagogastroduodenoscopy. The patient presents today and we had a discussion regarding some of her past history.? She does state that she is seen Dr. Dash Mcgregor in the past for somewhat similar issues.? 2016 2017 she was having issues.? She notes that January [address] which showed a small hiatal hernia but no other findings.? She states that Dr. Dash Mcgregor December 2017 did what I believe was a barium enema and at some point during their colonoscopy as well.? The patient was having bloating fatigue and discomfort.? She additionally states that she was seen by out-of-town gastroenterology consultation at [facility] and had another colonoscopy at that time. Her current concern is 1 of belching.? She claims that she has a feeling in her stomach where it is better to eat and particularly carbohydrates.? She feels that she is gained some weight with this behavior and is mostly with breakfast and lunch.? She states that occasionally she will have excessive flatus as well.? She was placed on omeprazole therapy as noted above and then that was ceased for a reported period of time and she was placed on pantoprazole therapy. When she reviewed her notes she wonders whether in 2018 and in 2019 perhaps her symptoms were of more severity than currently ROS General General: Yes weight change; No appetite, fatigue, colon cancer, breast cancer or weakness HEENT HEENT: Yes eye surgery; No difficulty swallowing, eye injury, swollen glands or hoarseness Endo Endocrine: Yes thyroid disease; No diabetes mellitus, thyroid cancer, Hair loss, heat intolerance or cold intolerance Skin Skin: No rash or changing moles Musc Musculoskeletal: Yes arthritis; No back problems, rheumatoid arthritis, gout or joint pain Cardio Cardiovascular: No murmur, pacemaker, heart disease, atrial fibrillation, high blood pressure, heart attack, heart stent, palpitations, shortness of breat with exertion or chest pain Psych Psychiatric: No depression, anxiety or hearing voices Resp Respiratory: No shortness of breath, No sleep apnea, No cough, No COPD, No asthma, No emphysema and No wheezing Gastro Gastrointestinal: Yes abdominal pain, Yes nausea or vomiting, No diarrhea, No constipation, No blood in stool, Yes acid reflux, No hemorrhoids, No ulcers, No gallbladder problem and No black,tarry stools Romulo Hematologic: No blood thinners, No blood disorders, No bleeding, No anemia and No blood clots Neuro Neurologic: No system reviewed and no additional complaints, except as documented, No as per HPI, No abnormal gait, No abnormal hearing, No abnormal movements, No abnormal speech, No behavioral changes, No burning sensations, No confusion, No convulsions, No disequilibrium, No dizziness, No localized weakness, No frequent falls, No headache(s), No lack of coordination, No loss of vision, No memory loss, No numbness, No other visual disturbances, No radicular pain, No restless legs, No sensory deficit, No syncope, No tingling, No tremor(s), No weakness and No other Exam Const General: cooperative, comfortable and no acute distress Nutritional Appearance: average body habitus Orientation: alert, awake and oriented x3 HENMT Head: normal to inspection Neck Neck: normal visual inspection Resp Effort & Inspection: normal respiratory effort Auscultation: clear to auscultation bilaterally Cardio Rate: regular rate Rhythm: regular rhythm GI Inspection: normal to inspection Palpation: soft and no hepatosplenomegaly Neuro General: patient alert, patient awake and patient oriented x3 Extrem General: no calf tenderness Psych Appearance: grossly normal Assessment and Plan Assessment and Plan (1) Belching: ?Status:?Acute ?Plan: I have discussed with her that I agree with Dr. Annie Ruiz's recommendation to perform a esophagogastroduodenoscopy with possible biopsy or polypectomy as indicated.? I would anticipate keep taking careful inspection for possible findings at might suggest H. pylori or even eosinophilic esophagitis.? This would be done with biopsies.? I do find it somewhat curious that eating more food helps calm her her condition suggesting that this might be a gastritis or similar problem.? On the other hand 1 would think that a proton pump inhibitor like omeprazole or pantoprazole would therefore resolve that issue. I have discussed risks of bleeding and perforation and aspiration.? I do believe however that this is a low risk procedure.? I would anticipate proceeding with monitored anesthesia care. She has had an opportunity to ask and have questions answered.? She will tentatively schedule at this time and then we will further consider her options and pursue at her discretion. She is aware if a definitive finding is not identified at the time of her EGD that I then would likely suggest that this probably is not a general surgical illness. She has had an opportunity to ask and have questions answered.? I appreciate the opportunity of assisting with her surgical care. Copy: Dr. Ian Chandra M.D., F.A.C.S. I have re-examined the patient. There are no clinical changes since date of exam. Mayo Chandra M.D., F.A.C.S.
--- NOTE | 2022-04-23 08:30 | EGD_PTH ---
PATIENT: ADILENE ANDREWS LOC: EN U#:[id number] AGE/SX: 76/F ROOM: RE04/23/[address]: Dr. Mayo Chandra MD : 1945 BED: DIS: 04/23/2022 SPEC #: [id number] RECD: 04/23/22 11:06 STATUS: SAMUEL GILA #: [id number] HOWARD: 04/23/22 08:[address]: Mayo Chandra DEPT: SURGICAL PATHOLOGY RECD BY: Flor Nguyen ENTERED: 04/23/22 12:09 SP TYPE: EGD BIOPSY OT DR: Dr. Ian Villalba MD Tissues: A - Duodenum, NOS B - Gastric mucous membrane C - Esophagus, NOS D - Esophagus, NOS Procedures: Special Stain Group II Surgery Specimen Level IV Alcian Blue/PAS (control) HEADER OPERATION: EGD ([facility]), biopsy PRE-OP DIAGNOSIS: Belching TISSUE SUBMITTED: A ? Duodenum biopsy, B ? Antrum biopsy for histo and H. pylori, C ? Distal esophagus biopsy, D ? Mid esophagus biopsy MICROSCOPIC DIAGNOSIS A. Duodenum, biopsy: A fragment of duodenal mucosa with mild nonspecific chronic inflammation and Brian gland hyperplasia. B. Antrum, biopsy: Mild gastritis. See microscopic description and comment. C. Distal esophagus, biopsy: Fragments of gastroesophageal epithelium, negative for intestinal metaplasia (goblet cell metaplasia). See comment. D. Mid esophagus, biopsy: A fragment of squamous epithelium, no pathologic diagnosis. SJ:raya 04/24/2022 COMMENT B. The results of immunohistochemistry for Helicobacter pylori will be reported separately ([id number]). C. Alcian blue/PAS stain with matched control is used in the evaluation of the specimen. The specimen predominantly consists of squamous epithelium. MICROSCOPIC DESCRIPTION Slides are reviewed. B. The specimen shows fragments of gastric mucosa with chronic inflammatory cell infiltrates in the lamina propria consisting of lymphocytes and plasma cells, consistent with mild chronic gastritis. GROSS DESCRIPTION A - Received in fixative is one container labeled with the patient's name and designated duodenum biopsy. The specimen consists of one irregular fragment of light spence soft tissue that measures 0.3 x 0.3 x 0.1 cm. The specimen is totally submitted in one cassette. B - Received in fixative is one container labeled with the patient's name and designated antrum biopsy. The specimen consists of one irregular fragment of light spence soft tissue that measures 0.5 x 0.3 x 0.1 cm. The specimen is totally submitted in one cassette. C - Received in fixative is one container labeled with the patient's name and designated distal esophagus biopsy. The specimen consists of multiple irregular fragments of light spence soft tissue that in aggregate measure 1 x 0.3 x 0.1 cm. The specimen is totally submitted in one cassette. D - Received in fixative is one container labeled with the patient's name and designated mid esophagus biopsy. The specimen consists of one irregular fragment of light spence soft tissue that measures 0.3 x 0.2 x 0.1 cm. The specimen is totally submitted in one cassette. / SJ:rg 04/23/2022 TC:3 CPT: 75844 x4, 35592
--- NOTE | 2022-04-23 08:30 | IMM_PTH ---
PATIENT: ADILENE ANDREWS LOC: EN U#:[id number] AGE/SX: 76/F ROOM: RE04/23/[address]: Dr. Mayo Chandra MD : 1945 BED: DIS: 04/23/2022 SPEC #: [id number] RECD: 04/23/22 12:43 STATUS: SAMUEL REQ #: [id number] HOWARD: 04/23/22 08:[address]: Mayo Chandra DEPT: IMMUNOHISTOCHEMISTRY RECD BY: Alyssia Cooley ENTERED: 04/23/22 12:44 SP TYPE: IMMUNO OTHR DR: Dr. Ian Villalba MD Tissues: B - Stomach, NOS Procedures: H Pylori (initial) PHYSICIAN & INSTITUTION [facility] [place] [id number] SPECIMEN INFORMATION: Tissue Source: B ? Antrum biopsy Clinical Info: Doris Specimen Number: [id number] CPT code: 55598 METHODOLOGY: Deparaffinized sections of prefer/formalin-fixed tissue or PAP/DQ stained slides are incubated with monoclonal/polyclonal antibodies/oligonucleotide probes. Localization is made via biotin free immunoperoxidase method. Appropriate controls are performed and reacted as expected. Results on target cell population are indicated in the following table: RESULTS: ANTIBODY / CLONE RESULT Block B H Pylori (polyclonal) negative These tests were developed and their performance characteristics determined by [facility]. They may not have been cleared or approved by the U.S. Food and Drug Administration. The FDA has determined that such clearance or approval is not necessary. The above immunohistochemical/dualISH markers are ordered and reviewed by the Pathologist. INTERPRETATION: B. Antrum, biopsy: Negative for Helicobacter pylori organisms. DUONG:raya 04/25/2022
--- NOTE | 2022-04-23 09:18 | OP.EGD_ITS ---
Patient Name: Sweetie Cummings Procedure Date: 04/23/2022 8:59 AM Date of : 1945 Age: 76 Procedure: Upper GI endoscopy Indications: Dysphagia Providers: Mayo Chandra MD Medicines: See the Anesthesia note for documentation of the administered medications Complications: No immediate complications. Procedure: Pre-Anesthesia Assessment: - Prior to the procedure, a History and Physical was performed, and patient medications and allergies were reviewed. The patient's tolerance of previous anesthesia was also reviewed. The risks and benefits of the procedure and the sedation options and risks were discussed with the patient. All questions were answered, and informed consent was obtained. Prior Anticoagulants: The patient has taken no previous anticoagulant or antiplatelet agents. ASA Grade Assessment: II - A patient with mild systemic disease. After reviewing the risks and benefits, the patient was deemed in satisfactory condition to undergo the procedure. After obtaining informed consent, the endoscope was passed under direct vision. Throughout the procedure, the patient's blood pressure, pulse, and oxygen saturations were monitored continuously. The gastroscope was introduced through the mouth, and advanced to the second part of duodenum. The upper GI endoscopy was accomplished without difficulty. The patient tolerated the procedure well. Scope In: 9:05:59 AM Scope Out: 9:11:56 AM Total Procedure Duration Time 0 hours 5 minutes 57 seconds Findings: The middle third of the esophagus was normal. Biopsies were taken with a cold forceps for histology. A small hiatal hernia was present. The gastroesophageal junction was normal. Biopsies were taken with a cold forceps for histology. The entire examined stomach was normal. Biopsies were taken with a cold forceps for histology. Diffuse mildly erythematous mucosa without active bleeding and with no stigmata of bleeding was found in the duodenal bulb. Biopsies were taken with a cold forceps for histology. Impression: - Normal middle third of esophagus. Biopsied. - Small hiatal hernia. - Normal gastroesophageal junction. Biopsied. - Normal stomach. Biopsied. Small hiatal hernia may correlate with burping. No gross evidence for reflux changes. Await biopsies and likely recommend conservative care. - Erythematous duodenopathy. Biopsied. Recommendation: - Discharge patient to home. - Resume previous diet. - Continue present medications. - Telephone my office for pathology results in 1 week. Procedure Code(s): --- Professional --- 92218, Esophagogastroduodenoscopy, flexible, transoral; with biopsy, single or multiple Diagnosis Code(s): --- Professional --- K44.9, Diaphragmatic hernia without obstruction or gangrene K31.89, Other diseases of stomach and duodenum R13.10, Dysphagia, unspecified CPT copyright 2017 [employer]. All rights reserved. The codes documented in this report are preliminary and upon safety attendant review may be revised to meet current compliance requirements. Mayo Chandra MD 04/23/2022 9:18:15 AM This report has been signed electronically. Number of Addenda: 0 Note Initiated On: 04/23/2022 8:59 AM
--- NOTE | 2022-04-23 09:19 | OP.CCLET_ITS ---
04/23/2022 Ian Villalba MD [address] [place] [address] [place] [address] Re : Upper GI endoscopy procedure for Sweetie Cummings Dear Dr. Villalba This procedure was performed on Saturday, April 23, 2022. My impressions and recommendations are as follows: Impressions : - Normal middle third of esophagus. Biopsied. - Small hiatal hernia. - Normal gastroesophageal junction. Biopsied. - Normal stomach. Biopsied. Small hiatal hernia may correlate with burping. No gross evidence for reflux changes. Await biopsies and likely recommend conservative care. - Erythematous duodenopathy. Biopsied. Recommendations : - Discharge patient to home. - Resume previous diet. - Continue present medications. - Telephone my office for pathology results in 1 week. My findings are described in the full procedure note, which is enclosed. If I can be of further assistance, please feel free to contact me at Doctor phone number(s): Work: . Sincerely, Mayo Chandra MD 04/23/2022 9:18:15 AM This report has been signed electronically.
== END 2022-04-23 10:16 | disposition home or self-care (01) ==
LOC: EN 07:29 → AC 07:30
PROVIDERS: PCP Internal Medicine; Referring Provider Internal Medicine; Visit Provider Surgery
PROC: 0DJ08ZZ Inspection of Upper Intestinal Tract, Via Natural or Artificial Opening Endoscopic (ICD-10-PCS; CPT 43235; principal; 2022-04-23 08:25)
DX: K29.50 Unspecified chronic gastritis without bleeding (principal); K44.9 Diaphragmatic hernia without obstruction or gangrene; K31.89 Other diseases of stomach and duodenum; E03.9 Hypothyroidism, unspecified; K29.80 Duodenitis without bleeding; Z79.82 Long term (current) use of aspirin; Z79.899 Other long term (current) drug therapy
CPT/HCPCS: 43239; 88305; 88313; 88342; J7120; J2405

== ENCOUNTER → 2022-05-10 | Outpatient (CLI) | payer MEDICARE, OTHER, SELFPAY ==
[2022-05-10 16:12] LABS: T4 Free Direct 0.97 ng/dL (0.76-1.46)
== END | disposition home or self-care (01) ==
LOC: BIMLAB 14:28
PROVIDERS: PCP Internal Medicine; Referring Provider Internal Medicine Endocrinology, Diabetes & Metabolism; Visit Provider Internal Medicine Endocrinology, Diabetes & Metabolism
DX: E03.8 Other specified hypothyroidism (principal); E06.3 Autoimmune thyroiditis
CPT/HCPCS: 36415; 84439; 84443

== ENCOUNTER 2022-10-04 08:30 | Outpatient (RCR) | payer MEDICARE, OTHER, SELFPAY ==
--- NOTE | 2022-09-26 12:59 | HP.PTEVAL_ITS ---
Patient's Visit Information ADILENE ANDREWS is a 76 year old F referred to Physical Therapy by FAISAL Bellamy with a diagnosis of Strain of unspecified muscle, fascia and tendon at shoulder, S46.912A. Date of Evaluation: 09/26/22 Physical Therapist: Ceferino Dean - Visit Plan Frequency: 2x /Week Duration: 4 Weeks Plan: Continue with RTC/scapular strengthening. Use manual therapy and modalities as needed for pain control. - Subjective Pt. is a 76 y.o. female who has been having left shoulder pain since this past Friday after she thinks she laid on it wrong. She notes that the pain continued to get a little worse at the beginning of the week. She got an x-ray of her shoulder which was negative. Her PLOF includes no history of left shoulder pain in the past before this. She denies any chest pain or numbness/tingling down her left arm. Pt. is right handed. She has difficulty with reaching overhead, reaching out to the side, occasionally sleeping, UE dressing, doing her hair, lifting things, carrying things, and housework. 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 Her goal with physical therapy is to not have shoulder pain. She has had previous physical therapy for dizziness and right knee. Pt. rates left shoulder pain at 2/10 currently, worst 8/10, at best 0/10 and describes the pain as sharp. She is currently taking Tylenol for pain. Her PMH includes five eye surgeries. Her hobbies include exercising and working at her [employer]. - Objective Posture- Good posture in standing. Palpation- No tenderness to palpation left shoulder. AROM left shoulder 175 degrees mild pain, abduction 175 degrees mild pain, ER 88 degrees, IR 82 degrees. AROM right shoulder flexion 177 degrees, abduction 180 degrees, ER 92 degrees, IR 85 degrees. Strength left shoulder flexion 5/5, abduction 4+/5, ER 4+/5, IR 5/5, elbow flexion 5/5, elbow extension 5/5. Strength right shoulder flexion 5/5, abduction 5/5, ER 5/5, IR 5/5, elbow flexion 5/5, elbow extension 5/5. Special tests- Painful arc [+], Drop arm [-], Hawkin's Kartik [+], Lift off [-], Infraspinatus [+], Speed's [-] - Balance/Special Test Scores Quick DASH Score: 43.1800 - Goals Goal 1:: Pt. will be able to reach overhead and out to the side with no left shoulder pain. Goal Time Frame: 4-6 Weeks Goal 2:: Pt. will improve left shoulder strength to 5/5 for all motions in order to complete ADL's. Goal Time Frame: 4-6 Weeks Goal 3:: Pt. will be able to complete UE dressing with no left shoulder pain. Goal Time Frame: 4-6 Weeks Goal 4:: Pt. will be able to sleep a full night with no left shoulder pain. Goal Time Frame: 4-6 Weeks Goal 5:: Pt. will rate left shoulder pain at worst at 3/10 with ADL's. Goal Time Frame: 4-6 Weeks Goal 6:: Pt. will improve Quick Dash score < 20% disability in order to improve ADL's. Goal Time Frame: 4-6 Weeks - Rehabilitation Potential Physical Therapy Diagnosis: Decreased left shoulder strength and pain Rehabilitation Potential: Good - Anticipated Interventions Patient/Client Instruction: Educate patient on: Condition, Plan of Care For the Purpose of:: To decrease pain, To improve ability to perform ADL's, To improve performance and independence with ADL's, To assume or resume ADL's, To improve tolerance to ADL's Therapeutic Exercise to Include: Strength training, Postural training, Active ROM, Scapular Strength/Stabilization Comment: Focus on scapular and RTC strengthening. For the Purpose of:: To decrease pain, To improve performance and independence with ADL's, To assume or resume ADL's, To improve tolerance to ADL's Manual Therapy Techniques to Include: Mobilization, Soft tissue mobilization For the Purpose of:: To decrease pain, To improve ability to perform ADL's, To improve performance and independence with ADL's, To assume or resume ADL's, To improve tolerance to ADL's TENS: Yes IF ES: Yes Cryotherapy (ice pack, ice massage): Yes For the Purpose of:: To decrease pain, To improve ability to perform ADL's, To improve performance and independence with ADL's, To assume or resume ADL's, To improve tolerance to ADL's Thank you for the opportunity to evaluate your patient. For Medicare and Medicare HMO plans, please review the plan of care and approve it. It will need to be FAXED BACK to us at [phone] for Medicare purposes. For Medicare only, by signing this I certify the plan of care. Please let me know if there are questions or concerns regarding this plan of care. Physician Signature: Date:
--- NOTE | 2023-02-05 09:50 | HP.PT.NRP ---
Patient Information Patient Information: ADILENE ANDREWS was seen in my office for initial evaluation on 09/26/22. The following Plan of Care was established for this patient: POC Established Initial Frequency: 2x /Week Initial Duration: 4 Weeks Anticipated Interventions Patient/Client Instruction: Educate patient on: Condition and Plan of Care For the Purpose of:: To decrease pain, To improve ability to perform ADL's, To improve performance and independence with ADL's, To assume or resume ADL's and To improve tolerance to ADL's Therapeutic Exercise to Include: Strength training, Postural training, Active ROM and Scapular Strength/Stabilization For the Purpose of:: To decrease pain, To improve performance and independence with ADL's, To assume or resume ADL's and To improve tolerance to ADL's Manual Therapy Techniques to Include: Mobilization and Soft tissue mobilization For the Purpose of:: To decrease pain, To improve ability to perform ADL's, To improve performance and independence with ADL's, To assume or resume ADL's and To improve tolerance to ADL's TENS: Yes IF ES: Yes Cryotherapy (ice pack, ice massage): Yes For the Purpose of:: To decrease pain, To improve ability to perform ADL's, To improve performance and independence with ADL's, To assume or resume ADL's and To improve tolerance to ADL's Last Seen Last Seen: This patient was last seen in our office . Pertinent comments regarding their Physical therapy will appear below: Pt was treated for 3 PT visits for L shoulder pain through the date of 10/04/22. Pt has not returned through todays date and is discontinued at this time. At this point I will be discontinuing this patient from physical therapy. I would be happy to see this patient again in the future if found appropriate by the physician. Thank you! Rafat Lui, PT, ATC Balance/Gait/Functional tests Balance/Special Test Scores Quick DASH Score: 43.1800
== END 2022-10-04 19:00 | disposition home or self-care (01) ==
LOC: PT 08:30
PROVIDERS: PCP Internal Medicine; Referring Provider Physician Assistant; Visit Provider Physician Assistant
DX: S46.912D Strain of unspecified muscle, fascia and tendon at shoulder and upper arm level, left arm, subsequent encounter (principal)
CPT/HCPCS: 97110; 97161

== ENCOUNTER → 2022-10-18 | Outpatient (CLI) | payer MEDICARE, OTHER, SELFPAY ==
[2022-10-18 11:31] LABS: Bacteria 0 SEEN /hpf (None Seen); Mucous, Urine 0 SEEN /hpf (<or=2+); Red Blood Cells-Urine 0 SEEN /hpf (0-5); Squamous Epithelial Cells - UA 0 SEEN /hpf (5-10)
[2022-10-18 12:12] LABS: Absolute Lymphocyte Count 1.49 X10^3/uL (0.83-4.51); Absolute Neutrophil Count 2.8 X10^3/uL (2.0-7.7); Basophil# 0.02 X10^3/uL; Basophil% 0.4 % (0-1); Eosinophil# 0.04 X10^3/uL; Eosinophils% 0.8 % (0-5); Hematocrit 34.3 % (37-47); Hemoglobin 11.1 g/dL (12.0-15.0); Lymphocyte # 1.49 X10^3/ul (0.83-4.51); Lymphocyte % 31.6 % (19-41); Mean Corp Hgb Conc 32.4 g/dL (32-36); Mean Corpuscular Hgb 29.4 pg (27.0-32.0); Mean Platelet Vol. 9.7 fl (6.2-12.0); Monocyte# 0.34 X10^3/uL; Monocyte% 7.2 % (0-10); NRBC Flagged by Analyzer 0 % (0-5); Neutrophil # 2.81 X10^3/uL (2.7-7.7); Neutrophil % 59.8 % (47-70); Platelet Count 426 K/mm3 (150-450); RBC Distribution Width CV 14.3 % (11.6-14.6); Red Blood Count 3.77 M/mm3 (4.2-5.4); White Blood Count 4.7 K/mm3 (4.4-11.0)
[2022-10-18 12:17] LABS: Color, Urine Yellow (Yellow); Glucose, Dipstick Normal (Normal); Ketone-Dipstick Negative (Negative); Leukocyte Esterase-Dipstick 100 /ul (Negative); Nitrite-Dipstick Negative (Negative); Occult Blood-Urine Negative /ul (Negative); Protein-Dipstick Negative (Negative); Urine Bilirubin Dipstick Negative (Negative); Urine Clarity Sl. Cloudy (Clear); Urine Urobilinogen Normal (Normal)
[2022-10-18 12:26] LABS: White Blood Cells 10-25 SEEN /hpf (0-5)
[2022-10-18 12:45] LABS: Vitamin B12 1206 pg/mL (211-911); Vitamin D,25 Hydroxy 86.4 ng/mL
[2022-10-18 12:58] LABS: Ferritin 85 ng/mL (8-252); Iron 72 ug/dL (50-170); Iron Binding Capacity,Total 301 ug/dL (250-450); PERCENT IRON SATURATION 23.9 % (15.0-55.0)
[2022-10-18 13:11] LABS: ALB/GLOB Ratio 0.9 RATIO (0.9-2.4); AST(SGOT) 21 U/L (15-37); Alanine Aminotransfer ALT/SGPT 22 U/L (13-56); Albumin, Serum 3.6 g/dL (3.2-5.0); Alkaline Phosphatase 63 U/L (45-117); Anion Gap 8 (5-15); BUN 19 mg/dL (7-18); BUN/Creat Ratio 22.7 RATIO (10-20); Calcium,Total 9.7 mg/dL (8.5-10.1); Chloride 102 mmol/L (98-107); Creatinine, Serum 0.84 mg/dL (0.55-1.02); EST Glomerular Filtration Rate 71 mL/min (>60); Est Glom Filt Rate - Afr Amer 86 mL/min (>60); Globulin 4.2 g/dL (2.2-4.2); Glucose 87 mg/dL (74-106); Protein, Total 7.8 g/dL (6.4-8.2); Sodium Level 136 mmol/L (136-145); Thyroid Stim Hormone (TSH) 0.19 uIU/mL (0.358-3.74)
== END | disposition home or self-care (01) ==
LOC: BIMLAB 11:29
PROVIDERS: PCP Internal Medicine; Visit Provider Nurse Practitioner Family
DX: E03.8 Other specified hypothyroidism (principal); E06.3 Autoimmune thyroiditis; R53.83 Other fatigue; R11.0 Nausea; E56.9 Vitamin deficiency, unspecified; M85.80 Other specified disorders of bone density and structure, unspecified site; D50.9 Iron deficiency anemia, unspecified
CPT/HCPCS: 36415; 80053; 81001; 82306; 82607; 82728; 83540; 83550; 84443; 85025

== ENCOUNTER → 2022-11-07 | Outpatient (CLI) | payer MEDICARE, OTHER, SELFPAY ==
--- NOTE | 2022-11-07 14:18 | RAD_ITS ---
STUDY: X-RAY - PELVIS AND LEFT HIP REASON FOR EXAM: Female, 76 years old. Left hip pain. TECHNIQUE: 3 views of the pelvis and hip. COMPARISON: None. FINDINGS: There is a non-specific bowel gas pattern. Normal visualized soft tissue structures. Normal bilateral iliac wings, sacroiliac joints and visualized sacrum. Normal bilateral superior and inferior pubic rami. Normal pubic symphysis. Normal bilateral ischial tuberosities. Normal right hip. Normal visualized left femoral head. Normal left acetabulum. Normal left hip joint. RAD/HIP, UNI W/ Pelvis 2-3 Views IMPRESSION: Normal x-ray examination of the pelvis and left hip. Electronically Signed: Junior Guerra DO at 18:50 EDT ,
== END | disposition home or self-care (01) ==
LOC: MTRAD 14:18
PROVIDERS: PCP Internal Medicine; Referring Provider Internal Medicine; Visit Provider Internal Medicine
DX: M25.552 Pain in left hip (principal)
CPT/HCPCS: 73502

== ENCOUNTER → 2022-12-16 | Outpatient (CLI) | payer MEDICARE, OTHER, SELFPAY ==
[2022-12-16 12:37] LABS: Absolute Lymphocyte Count 1.74 X10^3/uL (0.83-4.51); Absolute Neutrophil Count 1.8 X10^3/uL (2.0-7.7); Basophil# 0.03 X10^3/uL; Basophil% 0.7 % (0-1); Eosinophil# 0.13 X10^3/uL; Eosinophils% 3.1 % (0-5); Hematocrit 35.2 % (37-47); Hemoglobin 11.5 g/dL (12.0-15.0); Lymphocyte # 1.74 X10^3/ul (0.83-4.51); Lymphocyte % 41.6 % (19-41); Mean Corp Hgb Conc 32.7 g/dL (32-36); Mean Corpuscular Hgb 30.6 pg (27.0-32.0); Mean Corpuscular Volume 93.6 fL (81-99); Mean Platelet Vol. 11.2 fl (6.2-12.0); Monocyte# 0.47 X10^3/uL; Monocyte% 11.2 % (0-10); NRBC Flagged by Analyzer 0 % (0-5); Neutrophil # 1.81 X10^3/uL (2.7-7.7); Neutrophil % 43.4 % (47-70); Platelet Count 289 K/mm3 (150-450); RBC Distribution Width CV 15.3 % (11.6-14.6); RBC Distribution Width SD 52.6 fl (35.1-43.9); Red Blood Count 3.76 M/mm3 (4.2-5.4); White Blood Count 4.2 K/mm3 (4.4-11.0)
[2022-12-16 13:12] LABS: T4 Free Direct 1.02 ng/dL (0.76-1.46); Thyroid Stim Hormone (TSH) 1.69 uIU/mL (0.358-3.74)
== END | disposition home or self-care (01) ==
LOC: MTLAB 09:39
PROVIDERS: PCP Internal Medicine; Referring Provider Internal Medicine Endocrinology, Diabetes & Metabolism; Visit Provider Internal Medicine Endocrinology, Diabetes & Metabolism
DX: D64.9 Anemia, unspecified (principal); E03.8 Other specified hypothyroidism; E06.3 Autoimmune thyroiditis
CPT/HCPCS: 36415; 84439; 84443; 85025

== ENCOUNTER → 2023-02-14 | Outpatient (CLI) | payer MEDICARE, OTHER, SELFPAY ==
[2023-02-14 16:27] LABS: Absolute Lymphocyte Count 1.61 X10^3/uL (0.83-4.51); Absolute Neutrophil Count 1.9 X10^3/uL (2.0-7.7); Basophil# 0.02 X10^3/uL; Basophil% 0.5 % (0-1); Eosinophil# 0.09 X10^3/uL; Eosinophils% 2.3 % (0-5); Hematocrit 36.6 % (37-47); Lymphocyte # 1.61 X10^3/ul (0.83-4.51); Lymphocyte % 40.5 % (19-41); Mean Corp Hgb Conc 32.8 g/dL (32-36); Mean Corpuscular Hgb 30.5 pg (27.0-32.0); Mean Corpuscular Volume 93.1 fL (81-99); Mean Platelet Vol. 11.7 fl (6.2-12.0); Monocyte# 0.35 X10^3/uL; Monocyte% 8.8 % (0-10); NRBC Flagged by Analyzer 0 % (0-5); Neutrophil # 1.91 X10^3/uL (2.7-7.7); Neutrophil % 47.9 % (47-70); Platelet Count 257 K/mm3 (150-450); RBC Distribution Width CV 13.7 % (11.6-14.6); Red Blood Count 3.93 M/mm3 (4.2-5.4)
[2023-02-14 17:01] LABS: ALB/GLOB Ratio 0.9 RATIO (0.9-2.4); AST(SGOT) 20 U/L (15-37); Alanine Aminotransfer ALT/SGPT 21 U/L (13-56); Albumin, Serum 3.7 g/dL (3.2-5.0); Alkaline Phosphatase 73 U/L (45-117); Anion Gap 6 (5-15); BUN 11 mg/dL (7-18); BUN/Creat Ratio 13.3 RATIO (10-20); Calcium,Total 8.6 mg/dL (8.5-10.1); Chloride 102 mmol/L (98-107); Creatinine, Serum 0.83 mg/dL (0.55-1.02); EST Glomerular Filtration Rate 72 mL/min (>60); Est Glom Filt Rate - Afr Amer 87 mL/min (>60); Glucose 56 mg/dL (74-106); Potassium 3.5 mmol/L (3.5-5.1); Protein, Total 7.7 g/dL (6.4-8.2); Sodium Level 135 mmol/L (136-145); Thyroid Stim Hormone (TSH) 3.03 uIU/mL (0.358-3.74)
== END | disposition home or self-care (01) ==
PROVIDERS: PCP Internal Medicine; Referring Provider Internal Medicine; Visit Provider Internal Medicine
DX: D64.9 Anemia, unspecified (principal); E03.8 Other specified hypothyroidism; E06.3 Autoimmune thyroiditis
CPT/HCPCS: 36415; 80053; 84443; 85025

== ENCOUNTER → 2023-02-18 | Outpatient (CLI) | payer MEDICARE, OTHER, SELFPAY | END | disposition home or self-care (01) | LOC: MTLAB 09:20 | PROVIDERS: PCP Internal Medicine; Referring Provider Internal Medicine; Visit Provider Internal Medicine | DX: D64.9 Anemia, unspecified (principal) | CPT/HCPCS: 36415; 82746 ==

== ENCOUNTER → 2023-08-14 | Outpatient (CLI) | payer MEDICARE, OTHER, SELFPAY ==
--- NOTE | 2023-08-14 14:00 | BI_ITS ---
MAMMOGRAPHY - BILATERAL SCREENING REASON FOR EXAM: Female, 77 years old. Routine annual screening examination. PERTINENT HISTORY: Mother with breast cancer. TECHNIQUE: Digital bilateral breast jessica (3D mammographic acquisition) in the CC and MLO projections. 2-D mediolateral oblique (MLO) and craniocaudad (CC) views of both breasts were obtained. CAD: Full Field Digital Mammography with Computer Added Detection was performed. COMPARISON: Comparison is made with prior study dated August 09, 2021 and August 03, 2019. FINDINGS: Breast Composition: The breasts are extremely dense, which lowers the sensitivity of mammography. There are no dominant masses or suspicious calcifications. No other significant abnormalities are identified. There has been no significant change since the prior study. BI/SCRN MAMM (CAD)W/JESSICA BILAT IMPRESSION: Stable bilateral screening mammogram. Yearly follow-up mammogram recommended. (A) ASSESSMENT CATEGORY: BIRADS Category 1: Negative. A letter regarding these results will be sent to the patient by the facility within 30 days. Approximately 10% of breast cancers are not detected by mammography. A normal mammogram should not delay biopsy of a clinically suspicious abnormality. [id number] Electronically Signed: Bacilio Garcia MD at 14:59 EST ,
--- NOTE | 2023-08-14 14:01 | BD_ITS ---
STUDY: DUAL ENERGY X-RAY ABSORPTIOMETRY / DXA REASON FOR EXAM: Female, 77 years old. Post menopausal TECHNIQUE: Bone Mineral Density (BMD) measurements of lumbar spine and bilateral hips were obtained. COMPARISON: Comparison is made with prior study dated August 09, 2021. FINDINGS: Lumbar Spine (L1-L4): g/cm2 (0.886) / T-score (-1.5) / Z-score (1.0) Findings are suggestive of osteopenia with a low fracture risk. Left Femur Total: g/cm2 (0.775) / T-score (-1.4) / Z-score (0.5) Left Femoral Neck: g/cm2 (0.653) / T-score (-1.8) / Z-score (0.3) Right Femur Total: g/cm2 (0.789) / T-score (-1.3) / Z-score (0.6) Right Femoral Neck: g/cm2 (0.654) / T-score (-1.8) / Z-score (0.4) The T-Scores on the most recent prior examination were: Lumbar Spine (L1-L4): There has been improvement of bone density since the previous examination. Left Femur Total: which represents a worsening of 3.6%. Right Femur Total: which represents a worsening of 2.8%. BD/Dexa Bone Density Study IMPRESSION: The patient is considered osteopenic as outlined below according to World Bam Organization (WHO) criteria with a moderate fracture risk. There has been worsening of bone density since the previous examination. Reference Information: The T-score is the number of standard deviations above or below the standard which is normal for young adults at their peak bone mineral density. The World Health Organization (WHO) interprets the T-scores as follows: Above -1 Normal bone density Between -1 and -2.5 Osteopenia Equal to / or below -2.5 Osteoporosis As a practical clinical guideline, osteopenia may be graded as follows: Mild -1 through -1.5 Moderate -1.6 through -2.0 Severe -2.1 through -2.4 The Z-score is the number of standard deviations above or below age-matched controls. A Z-score of less than -1.5 would be considered abnormal. References: 1. NIH Osteoporosis and Related Bone Diseases www osteo.org 2. International Society for Clinical Densitometry www iscd.org 3. National Osteoporosis Foundation www nof.org Electronically Signed: Bacilio Garcia MD at 12:54 EST ,
== END | disposition home or self-care (01) ==
LOC: OPBI 13:59
PROVIDERS: PCP Internal Medicine; Referring Provider Internal Medicine; Visit Provider Internal Medicine
DX: Z12.31 Encounter for screening mammogram for malignant neoplasm of breast (principal); Z78.0 Asymptomatic menopausal state
CPT/HCPCS: 77063; 77067; 77080

== ENCOUNTER 2023-08-18 13:30 | Outpatient (RCR) | payer MEDICARE, OTHER, SELFPAY ==
--- NOTE | 2023-06-30 13:12 | HP.PTEVAL ---
Patient's Visit Information Visit Information Visit Information: ADILENE ANDREWS is a 77 year old F referred to Physical Therapy by Dr. Ian Villalba MD with a diagnosis of L hip pain. Date of Evaluation: 06/30/23 Physical Therapist: Silver Calix, DPT, OCS, CSCS Visit Plan Frequency: 1x/Week Duration: 4-6 Weeks Plan: weekly x 3-6 as needed for teach and progress hip strength(itb and pririformis given today) and strength next session(clamshells, bridging, SLR abd and extension and flexion, inchworms, lunge) then f/u 2 weeks later. Subjective Subjective: Here for her hip. it is fine sometimes. Sometimes after activity it hurts. Had a meniscus tear in knee 1-2 yrs ago. Pain can hurt with steps and pain is down lateral left leg, in L groin or posterior lateral. Feels it more after an activity than during. Putting up lights has bothered her. Tyelnol is taken to get to sleep when needed. Feels it alot in bed if lies on R side feels it on L side. Can feel it lying on back. Sitting tends to be comfortable. Walking is mostly OK as she walks at [employer] and does upper body at [employer]. Leg presses and other leg exercises have been done and abduction and they hurt sometimes and not others. Walks 40 minutes and sometimes feels it after but not typically. Feels tired afterwards. Pain L hip: Pain Intensity (Out of 10): 0 Pain Intensity Range: 0 and 3 Comment: worse on actvie days, most weeks not as many days.(1-2x/week) Objective Objective: Walks into adn out of PT I without antalgia today and is not painful. Ascends and descends steps without rail reciprocally with just slight pain today on L lateral hip. Trasnfers bed and chair I. Tender to touch L TFL, GT and into prirofmris area. reflexes 2/3 patella adn achilles LB aROM WFL and without pain. sensation LE WNL to gross light touch. strength sagittal plane is good and coronal and frontal poor in hips at 3+ B er, ir, abuctors of hips, no pain. knee flexion ext, hip felxions are 4/5, hip extension 4-,, ankles are 4+. Has IR at opposite hip with resisted hip flexion seated. - FABERS, - FADDIRS, - hip scour., - slump and SLR. PROM B hips symmetrical and WFL. Some tightness in adduction at ITB and piriformis. Goals Goal 1:: I appropriate HEP to minimize future problems(hip strength adn stretching) Goal Time Frame: 4-6 Weeks Goal 2:: Pain 0-1/10 at all times and 75% improved. Goal Time Frame: 4-6 Weeks Goal 3:: climb steps without pain Goal Time Frame: 4-6 Weeks Rehabilitation Potential Physical Therapy Diagnosis: L hip pain likely muscular TFL and piriformis tight and weak. Rehabilitation Potential: Fair Anticipated Interventions Patient/Client Instruction: Educate patient on: Condition and Plan of Care For the Purpose of:: To decrease pain, To increase ROM and To improve nutrient delivery to tissue Therapeutic Exercise to Include: Strength training and Flexibilty training For the Purpose of:: To decrease pain, To increase ROM, To improve nutrient delivery to tissue and To improve muscle performance and motor function Text: Thank you for the opportunity to evaluate your patient. For Medicare and Medicare HMO plans, please review the plan of care and approve it. It will need to be FAXED BACK to us at [phone] for Medicare purposes. For Medicare only, by signing this I certify the plan of care. Please let me know if there are questions or concerns regarding this plan of care. Physician Signature: Date:
--- NOTE | 2023-08-18 14:04 | HP.PTDCSUM ---
Discharge Summary D/C summary: It has been my pleasure to treat ADILENE ANDREWS referred by Dr. Ian Villalba MD, with the diagnosis of L hip pain for a total of 5 visit(s). Discharge Date: 08/18/23 Please see the following information for a summary of their discharge status. Subjective Subjective: Doing exercises and trying to sleep with pillow between knees. No better than 6 weeks ago. Sometimes hurts more in thigh L. R side is OK. X ray was OK.Doing exercises at home. Pain L hip: Pain Intensity (Out of 10): 2 scapula: Pain Intensity (Out of 10): 2 Overall Improvement % Improvement: 0 Objective Objective/Function: Good PROM L hip, walking well but still c/o L quad and lateral hip pain, not so much in groin. Educated on decreasing step ups and lunges if they make her worse. Goals Goal 1:: I appropriate HEP to minimize future problems(hip strength adn stretching) Goal Progress: Goal Met Goal 2:: Pain 0-1/10 at all times and 75% improved. Goal Progress: Not Progressing Goal 3:: climb steps without pain Goal Progress: Not Progressing Plan Plan: d/c, pt to doctor for other options. D/C Information Discharge Comments: Pt to doctor for other otpions. d/c sentence: If there are questions or concerns regarding this patient's physical therapy, please feel free to call me at [phone]. Thank you for the referral of this patient. Sincerely, Silver Calix, DPT, OCS, CSCS Balance/Gait/Functional tests Balance/Special Test Scores Lower Extremity Functional Score: 68 Improvement % Improvement: 0
--- NOTE | 2023-11-10 11:46 | HP.PT.NRP ---
Patient Information Patient Information: ADILENE ANDREWS was seen in my office for initial evaluation on 06/30/23. The following Plan of Care was established for this patient: POC Established Initial Frequency: 1x/Week Initial Duration: 4-6 Weeks Anticipated Interventions Patient/Client Instruction: Educate patient on: Condition and Plan of Care For the Purpose of:: To decrease pain, To increase ROM and To improve nutrient delivery to tissue Therapeutic Exercise to Include: Strength training and Flexibilty training For the Purpose of:: To decrease pain, To increase ROM, To improve nutrient delivery to tissue and To improve muscle performance and motor function Last Seen Last Seen: This patient was last seen in our office 07/23/24. Pertinent comments regarding their Physical therapy will appear below: Pt seen 4 visits of POC and progressed HEP. She was to f/u 3 weeks later but did not schedule or attend. It has been over 3 months and I will discontinue due to nonattendance. At this point I will be discontinuing this patient from physical therapy. I would be happy to see this patient again in the future if found appropriate by the physician. Thank you! Silver Calix, DPT, OCS, CSCS Balance/Gait/Functional tests Balance/Special Test Scores Lower Extremity Functional Score: 68
== END 2023-08-18 19:00 | disposition home or self-care (01) ==
LOC: PT 13:30
PROVIDERS: PCP Internal Medicine; Referring Provider Internal Medicine; Visit Provider Internal Medicine
DX: M25.552 Pain in left hip (principal)
CPT/HCPCS: 97110; 97161; 97164

== ENCOUNTER → 2023-10-21 | Outpatient (CLI) | payer MEDICARE, OTHER, SELFPAY ==
--- NOTE | 2023-10-21 15:13 | RAD_ITS ---
INDICATION: Pain EXAMINATION/TECHNIQUE: X-RAY - RIGHT XR Shoulder Min 2 Views 4 VIEWS COMPARISON: Prior study dated: 01/24/2017 FINDINGS: SOFT TISSUES: No soft tissue swelling or gas. No radiopaque foreign body. BONES/JOINTS: No acute fracture or subluxation.. Mild irregularity of the greater tuberosity. Preservation of the joint space.. No sclerotic or destructive changes observed. RAD/Shoulder min 2 Views IMPRESSION: Mild degenerative changes. Electronically Signed: Johann Merritt MD at 15:39 EDT ,
== END | disposition home or self-care (01) ==
PROVIDERS: PCP Internal Medicine; Referring Provider Nurse Practitioner; Visit Provider Nurse Practitioner
DX: M25.511 Pain in right shoulder (principal)
CPT/HCPCS: 73030

== ENCOUNTER → 2023-11-04 | Outpatient (CLI) | payer MEDICARE, OTHER, SELFPAY ==
[2023-11-04 11:00] LABS: Vitamin D,25 Hydroxy 75.8 ng/mL
[2023-11-04 11:01] LABS: T4 Free Direct 0.88 ng/dL (0.76-1.46)
== END | disposition home or self-care (01) ==
LOC: MTLAB 08:21
PROVIDERS: PCP Internal Medicine; Referring Provider Internal Medicine Endocrinology, Diabetes & Metabolism; Visit Provider Internal Medicine Endocrinology, Diabetes & Metabolism
DX: E55.9 Vitamin D deficiency, unspecified (principal); E03.8 Other specified hypothyroidism; E06.3 Autoimmune thyroiditis
CPT/HCPCS: 36415; 82306; 84439; 84443

== ENCOUNTER → 2024-01-01 | Outpatient (CLI) | payer MEDICARE, OTHER, SELFPAY ==
[2024-01-01 18:23] LABS: Vitamin D,25 Hydroxy 69.3 ng/mL
[2024-01-01 18:26] LABS: T4 Free Direct 1.13 ng/dL (0.76-1.46); Thyroid Stim Hormone (TSH) 0.59 uIU/mL (0.358-3.74)
== END | disposition home or self-care (01) ==
LOC: MTLAB 15:42
PROVIDERS: PCP Internal Medicine; Referring Provider Internal Medicine Endocrinology, Diabetes & Metabolism; Visit Provider Internal Medicine Endocrinology, Diabetes & Metabolism
DX: E03.8 Other specified hypothyroidism (principal); E06.3 Autoimmune thyroiditis; E55.9 Vitamin D deficiency, unspecified
CPT/HCPCS: 36415; 82306; 84439; 84443

== ENCOUNTER → 2024-02-19 | Outpatient (CLI) | payer MEDICARE, OTHER, SELFPAY ==
[2024-02-19 07:42] LABS: Mucous, Urine 0 SEEN /hpf (<or=2+)
[2024-02-19 10:10] LABS: Absolute Lymphocyte Count 2.32 X10^3/uL (0.83-4.51); Basophil# 0.03 X10^3/uL; Basophil% 0.6 % (0-1); Eosinophil# 0.19 X10^3/uL; Eosinophils% 3.7 % (0-5); Hematocrit 36.3 % (37-47); Hemoglobin 11.9 g/dL (12.0-15.0); Lymphocyte # 2.32 X10^3/ul (0.83-4.51); Lymphocyte % 45.1 % (19-41); Mean Corp Hgb Conc 32.8 g/dL (32-36); Mean Corpuscular Hgb 30.7 pg (27.0-32.0); Mean Corpuscular Volume 93.6 fL (81-99); Mean Platelet Vol. 11.2 fl (6.2-12.0); Monocyte# 0.55 X10^3/uL; Monocyte% 10.7 % (0-10); NRBC Flagged by Analyzer 0 % (0-5); Neutrophil # 2.04 X10^3/uL (2.7-7.7); Neutrophil % 39.7 % (47-70); Platelet Count 261 K/mm3 (150-450); RBC Distribution Width SD 47.7 fl (35.1-43.9); Red Blood Count 3.88 M/mm3 (4.2-5.4); White Blood Count 5.1 K/mm3 (4.4-11.0)
[2024-02-19 10:11] LABS: Color, Urine Yellow (Yellow); Glucose, Dipstick Normal (Normal); Ketone-Dipstick Negative (Negative); Leukocyte Esterase-Dipstick 500 /ul (Negative); Nitrite-Dipstick Negative (Negative); Occult Blood-Urine 25 /ul (Negative); Protein-Dipstick 15 mg/dl (Negative); Urine Bilirubin Dipstick Negative (Negative); Urine Clarity Cloudy (Clear); Urine Urobilinogen Normal (Normal)
[2024-02-19 10:30] LABS: Vitamin D,25 Hydroxy 69.3 ng/mL
[2024-02-19 10:36] LABS: Bacteria 3+ /hpf (None Seen); Red Blood Cells-Urine 0-5 SEEN /hpf (0-5); Squamous Epithelial Cells - UA 0-5 SEEN /hpf (5-10); White Blood Cells 50-100 SEEN /hpf (0-5)
[2024-02-19 11:16] LABS: ALB/GLOB Ratio 0.9 RATIO (0.9-2.4); AST(SGOT) 22 U/L (15-37); Alanine Aminotransfer ALT/SGPT 21 U/L (13-56); Albumin, Serum 3.7 g/dL (3.2-5.0); Alkaline Phosphatase 64 U/L (45-117); Anion Gap 8 (5-15); BUN 17 mg/dL (7-18); BUN/Creat Ratio 17.8 RATIO (10-20); Chloride 105 mmol/L (98-107); Cholesterol 171 mg/dL (200); Creatinine, Serum 0.95 mg/dL (0.55-1.02); EST Glomerular Filtration Rate 61 mL/min (>60); Est Glom Filt Rate - Afr Amer 73 mL/min (>60); Glucose 82 mg/dL (74-106); High Density Lipoprotein 95 mg/dL; Potassium 3.9 mmol/L (3.5-5.1); Protein, Total 7.7 g/dL (6.4-8.2); Sodium Level 137 mmol/L (136-145); Triglycerides 80 mg/dL; Very Low Density Lipoprotein 16 mg/dL (5-40)
== END | disposition home or self-care (01) ==
PROVIDERS: Internal Medicine Endocrinology, Diabetes & Metabolism; PCP Internal Medicine; Referring Provider Internal Medicine; Visit Provider Internal Medicine
DX: K21.9 Gastro-esophageal reflux disease without esophagitis (principal); E06.3 Autoimmune thyroiditis; R39.15 Urgency of urination; E55.9 Vitamin D deficiency, unspecified
CPT/HCPCS: 36415; 80053; 80061; 81001; 82306; 84443; 85025; 87077; 87086; 87088; 87186

== ENCOUNTER → 2024-03-22 | Outpatient (CLI) | payer MEDICARE, OTHER, SELFPAY ==
--- NOTE | 2024-03-22 14:42 | RAD_ITS ---
STUDY: X-RAY - MANDIBLE (COMPLETE) REASON FOR EXAM: Female, 78 years old. TMJ joint pain. TECHNIQUE: 6 view(s) of the mandible were obtained. COMPARISON: None. FINDINGS: Osteopenia. Normal mandible. Mild arthrosis of the right and left temporomandibular joints. Remaining visualized osseous structures are normal. The soft tissue structures are unremarkable. RAD/Mandible Min 4 Views IMPRESSION: Osteopenia with mild arthrosis of both temporomandibular joints. Electronically Signed: Abe Fernandes MD at 15:19 EDT ,
== END | disposition home or self-care (01) ==
LOC: MTRAD 14:42
PROVIDERS: PCP Internal Medicine; Referring Provider Physician Assistant; Visit Provider Physician Assistant
DX: M26.649 Arthritis of unspecified temporomandibular joint (principal)
CPT/HCPCS: 70110

== ENCOUNTER 2024-04-15 08:00 | Outpatient (RCR) | payer MEDICARE, OTHER, SELFPAY ==
--- NOTE | 2024-03-01 12:36 | HP.PTEVAL_ITS ---
Patient's Visit Information Visit Information Visit Information: ADILENE ANDREWS is a 78 year old F referred to Physical Therapy by JEEVAN Osborne with a diagnosis of ARTHRALGIA OF R TEMPOROMANDIBULAR JOINT. Date of Evaluation: 03/01/24 Physical Therapist: Lola Dacosta PT, Cert MDT Visit Plan Frequency: 1-2x /Week Duration: 4-6 Weeks Plan: US AT 1.0 W/CM2, 20% x 5-8 min to R jaw region. R TMJ region manual therapy to promote increased ROM. Posture ROM, Stretching and Strengthening to alleviate stress on TMJ joints. ADL Ergonomic Training. HEP Instruction. Subjective Subjective: Work/Leisure: RETIRED. Present symptoms: R TMJ REGION PAIN. PATIENT DENIES NECK PAIN AND MAICOL UE NUMBNESS AND TINGLING. Present since: 01/25/24 Currently getting better, getting worse or staying the same: Staying the same. Pain Scale: WORST 4/10, LEAST 0/10 Currently: 0/10 Commenced as a result of: NO APPARENT REASON OTHER THAN PLAYING IN A [employer] TOURNAMENT Symptoms at onset: WOKE UP THE MORNING AFTER PLAYING IN A [employer] FOR ABOUT 3 HOURS (NERVOUS) THE NIGHT BEFORE AND COULDN'T OPEN MOUTH. 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 HADN'T PLAYED IN ABOUT A YEAR AND WAS JUST SUPPOSED TO BE FUN. 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 WOKE UP IN THE CAMPER NOT ABLE TO OPEN JAW AND WHEN TRIED TO FORCE IT HAD PAIN IN R JAW. Worse: EATING. TRYING TO OPEN JAW WIDE AND WHEN BITES DOWN ON SOMETHING HARD Better: PAINFREE MOST OF THE TIME. PAIN GOES AWAY RIGHT AWAY WHEN CLOSES MOUTH OR STOPS BITING BUT THERE IS SOME TYPE OF AWARENESS OF A DIFFENT FEELING ON THE RIGHT SIDE OF HER JAW COMPARED TO THE LEFT THAT ISN'T PAIN OR REALLY TIGHTNESS OR SWELLING BUT HARD TO DESCRIBE. 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 This episode: NOW CLINIC - [facility] HELPED THEN WENT TO [facility] WHO REFERRED HER TO A DENTIST AND PT - DENTIST SUGGESTED SHE MAKE A COMMODITIES MANAGER - COMMODITIES MANAGER NOT HELPING. ALSO HAD REGULAR FOLLOW UP WITH PCP AND SHE SUGGESTED IT MIGHT BE ARTHRITIS AND TO FOLLOW THROUGH WITH PT. STATES PCP FOUND UTI AND SHE IS ON ANTIBIOTIC. Dizziness: NO Tinnitus: NO Nausea: NO Shortness of Breath: NO Difficulty Swollowing: NO Gait: NORMAL Accidents: NO Unexplained weight loss: NO Imaging: NO PMH: INJURY TO R EYE AND EAR RESULTING IN LOSS OF R EAR HEARING AND 5 EYE SURGERIES. HYPOTHYROIDISM. GOING TO HAVE CATARCT SX NEXT MONTH. OTHER: PATIENT STATES IT DOESN'T HURT TO TALK AND IT DOESN'T HURT MUCH IT DID IN THE BEGINING. SPENDS TIME ON A COMPUTER. Objective Objective: Sitting Posture/Standing Posture: FORWARD HEAD. ROUNDED SHOULDERS. L SHLD LEVEL LOWER THAN R. NO TORTICOLLIS. Active Correction of posture: ABLE TO PARTIALLY CORRECT. PARTIAL CORRECTION HAS NE ON SYMPTOMS. DOES NOT MAINTAIN. Other Observations: INDEP GAIT AND TRANSFERS. Sensory deficit: MAICOL UE LIGHT TOUCH SENSATION GROSSLY INTACT AND SYMMETRICAL ROM deficit: LIMITED JAW OPENING. PATIENT ABLE TO OPEN JAW 1.5 IN BUT C/O R TMJ REGION PAIN AT 1.0 IN EXCURSION. NO CLICKING OR POPPING WITH JAW OPENING OR CLOSING. NO DEVIATION OBSERVED OR PALPATED. MAICOL UE ROM WFL. Motor deficit: MAICOL UE STRENGTH GROSSLY 5/5 WITH MMT'ING. PATIENT REPORTS SHE DOES WEIGHTS AT HOME AND DENIES PAIN WITH TESTING. Cervical Mvmt Loss: Flex: NIL Pro: NIL Ext: MIN Ret: MOD TO AMPARO RSB: MOD LSB: MIN TO MOD R Rot: MOD L Rot: MIN PATIENT DENIES PAIN WITH CERVICAL ROM TESTING ALL PLANES Postural strength: FAIR Palpation: NO ACUTE TENDERNESS WITH PALPATION OF MAICOL TMJ, FACIAL, CLAVICAL, SHLD OR CERVICAL REGIONS. NO CLICKING OR POPPING OR DEVIATION WITH JAW OPENING AND CLOSING. TREATMENT: NEUROMUSCULAR REEDUCATION - RETRAINING OF MVMT AND POSTURE FOR SITTING, LYING AND STANDING ACTIVITIES. Goals Goal 1:: PATIENT WILL REPORT AT LEAST 50% IMPROVMENT IN ABILITY TO EAT WITHOUT JAW PAIN Goal Time Frame: 4-6 Weeks Goal 2:: PATIENT WILL REPORT AT LEAST 50% IMPROVEMENT IN ABILITY TO OPEN HER JAW WITHOUT PAIN Goal Time Frame: 4-6 Weeks Goal 3:: PATIENT WILL BE ABLE TO MAINTAIN PROPER POSTURE THROUGHOUT TREATMENT SESSION WITHOUT CUEING. Goal Time Frame: 4-6 Weeks Goal 4:: PATIENT WILL BE INDEP WITH A HEP FOR CONTINUED IMPROVEMENT ONCE FORMAL PHYSICAL THERAPY CONCLUDES. Goal Time Frame: 4-6 Weeks Rehabilitation Potential Physical Therapy Diagnosis: THIS PATIENT PRESENTS TO PT WITH C/O R JAW PAIN. SHE HAS DECREASED JAW EXCURSION, DECREASED NECK ROM, POSTURAL TIGHTNESS AND POS TURAL WEAKNESS. Rehabilitation Potential: Good Anticipated Interventions Patient/Client Instruction: Educate patient on: Condition, Plan of Care and Risk Factors For the Purpose of:: To improve self management Therapeutic Exercise to Include: Strength training, Body mechanics, Postural training, Flexibilty training, Neuromotor development and Scapular Strength/Stabilization For the Purpose of:: To decrease pain, To improve muscle performance and motor function, To increase tolerance to activity/condition/position, To improve ability of physical actions for home/community/work/leisure, To decrease soft tissue restriction, To increase flexibility/ROM, To improve health and function, To foster healthy habits and To improve self management Manual Therapy Techniques to Include: Mobilization and Soft tissue mobilization For the Purpose of:: To decrease pain, To increase ROM, To improve muscle performance and motor function, To increase tolerance to activity/condition/position, To improve ability of physical actions for home/community/work/leisure, To decrease soft tissue restriction and To increase flexibility/ROM Ultrasound (thermal/non thermal): Yes For the Purpose of:: To decrease pain, To decrease swelling/inflammation, To increase ROM and To improve nutrient delivery to tissue Text: Thank you for the opportunity to evaluate your patient. For Medicare and Medicare HMO plans, please review the plan of care and approve it. It will need to be FAXED BACK to us at [phone] for Medicare purposes. For Medicare only, by signing this I certify the plan of care. Please let me know if there are questions or concerns regarding this plan of care. Physician Signature:____ Date:
--- NOTE | 2024-04-01 09:49 | HP.PTREVAL ---
Re-Evaluation Intro: Adeline Emmanuel, ALEJO-C, It has been my pleasure to treat ADILENE ANDREWS over the last 10 visits for ARTHRALGIA OF R TEMPOROMANDIBULAR JOINT. Please see the progress note below for an update on the physical therapy plan of care! Subjective Subjective: [place] [employer] [place] AND ATE SOME CRACKER JACKS AND IT WENT OK - BETTER THAN BEFORE. STATES THERE IS IMPROVEMENT. DOING HEP. PATIENT REPORTS 0-2/10 R JAW PAIN WITH OCCASIONAL FLEETING 3/10 PAIN. Objective Objective/Function: PATIENT IS NOW ABLE TO FULLY OPEN HER MOUTH BUT IT PROVOKES R JAW THAT REMAINES WORSE A RESULT FOR SEVERAL MINUTES. OPENING, BITING AND CHEWING ARE ALL IMPROVING IN TERMS OF PAIN AND STRENGTH. OPENING IS IMPROVING IN TERMS OF ROM. ADL TOLERANCE TO BRUSHING AND FLOSSING IS ALSO IMPROVING. PATIENT WITH MUCH BETTER POSTURE AWARENESS/CONTROL. RECOMMEND CONTINUED PT BASED ON PROGRESS MADE AND ROOM FOR FURTHER IMPROVEMENT. PATIENT AGREEABLE. Plan Plan Plan: Cont Physical Therapy 1-2x's a wk x 6-10 visits for US TO R jaw region. R TMJ region manual therapy to promote increased ROM. Posture ROM, Stretching and Strengthening to alleviate stress on TMJ joints. ADL Ergonomic Training. HEP Instruction. Goals Goals Goal 1:: PATIENT WILL REPORT AT LEAST 50% IMPROVMENT IN ABILITY TO EAT WITHOUT JAW PAIN - Goal Met New Goal: PATIENT WILL REPORT AT LEAST 80% IMPROVEMENT IN ABILITY TO EAT WITHOUT JAW PAIN. Goal Time Frame: 4-6 Weeks Goal Progress: Progressing Goal 2:: PATIENT WILL REPORT AT LEAST 50% IMPROVEMENT IN ABILITY TO OPEN HER JAW WITHOUT PAIN - Goal Met New Goal: PATIENT WILL REPORT AT LEAST 80% IMPROVEMENT IN ABILITY TO OPEN HER JAW WITHOUT PAIN. Goal Time Frame: 4-6 Weeks Goal Progress: Progressing Goal 3:: PATIENT WILL BE ABLE TO MAINTAIN PROPER POSTURE THROUGHOUT TREATMENT SESSION WITHOUT CUEING. Goal Time Frame: 4-6 Weeks Goal Progress: Progressing Goal 4:: PATIENT WILL BE INDEP WITH A HEP FOR CONTINUED IMPROVEMENT ONCE FORMAL PHYSICAL THERAPY CONCLUDES. Goal Time Frame: 4-6 Weeks Goal Progress: Progressing Anticipated Interventions Anticipated Interventions Patient/Client Instruction: Educate patient on: Condition, Plan of Care and Risk Factors For the Purpose of:: To improve self management Therapeutic Exercise to Include: Strength training, Body mechanics, Postural training, Flexibilty training, Neuromotor development and Scapular Strength/Stabilization For the Purpose of:: To decrease pain, To improve muscle performance and motor function, To increase tolerance to activity/condition/position, To improve ability of physical actions for home/community/work/leisure, To decrease soft tissue restriction, To increase flexibility/ROM, To improve health and function, To foster healthy habits and To improve self management Manual Therapy Techniques to Include: Mobilization and Soft tissue mobilization For the Purpose of:: To decrease pain, To increase ROM, To improve muscle performance and motor function, To increase tolerance to activity/condition/position, To improve ability of physical actions for home/community/work/leisure, To decrease soft tissue restriction and To increase flexibility/ROM Ultrasound (thermal/non thermal): Yes For the Purpose of:: To decrease pain, To decrease swelling/inflammation, To increase ROM and To improve nutrient delivery to tissue Re-Evaluation Ending Re-evaluation ending: Please do not hesitate to contact me at [phone] by phone or if you have questions or concerns regarding this new plan of care! Sincerely, Lola Dacosta, PT, Cert MDT
== END 2024-04-15 19:00 | disposition home or self-care (01) ==
LOC: PT 08:00
PROVIDERS: PCP Internal Medicine; Visit Provider Nurse Practitioner
DX: M26.621 Arthralgia of right temporomandibular joint (principal)
CPT/HCPCS: 97140; 97162; 97530

== ENCOUNTER → 2024-05-12 | Outpatient (CLI) | payer MEDICARE, OTHER, SELFPAY ==
[2024-05-12 16:50] LABS: Absolute Lymphocyte Count 2.05 X10^3/uL (0.83-4.51); Absolute Neutrophil Count 2.1 X10^3/uL (2.0-7.7); Basophil# 0.01 X10^3/uL; Basophil% 0.2 % (0-1); Eosinophils% 2.1 % (0-5); Hematocrit 37.6 % (37-47); Hemoglobin 12.3 g/dL (12.0-15.0); Lymphocyte # 2.05 X10^3/ul (0.83-4.51); Lymphocyte % 43.9 % (19-41); Mean Corp Hgb Conc 32.7 g/dL (32-36); Mean Corpuscular Hgb 30.3 pg (27.0-32.0); Mean Corpuscular Volume 92.6 fL (81-99); Mean Platelet Vol. 11.5 fl (6.2-12.0); Monocyte# 0.43 X10^3/uL; Monocyte% 9.2 % (0-10); NRBC Flagged by Analyzer 0 % (0-5); Neutrophil # 2.07 X10^3/uL (2.7-7.7); Neutrophil % 44.4 % (47-70); Platelet Count 273 K/mm3 (150-450); RBC Distribution Width CV 14.2 % (11.6-14.6); RBC Distribution Width SD 48.6 fl (35.1-43.9); Red Blood Count 4.06 M/mm3 (4.2-5.4); White Blood Count 4.7 K/mm3 (4.4-11.0)
== END | disposition home or self-care (01) ==
LOC: BIMLAB 15:05
PROVIDERS: PCP Internal Medicine; Referring Provider Internal Medicine; Visit Provider Internal Medicine
DX: E06.3 Autoimmune thyroiditis (principal)
CPT/HCPCS: 36415; 84443; 85025

== ENCOUNTER → 2024-06-21 | Outpatient (CLI) | payer MEDICARE, OTHER, SELFPAY ==
--- NOTE | 2024-06-21 15:39 | MRI_ITS ---
INDICATION: HEARING LOSS L EAR EXAMINATION: MRI - MR Attn IACs and/or Temporal Bones WO/W Contrast TECHNIQUE: MRI examination of brain obtained with standard protocol including multiplanar multiecho imaging. Pre and Postcontrast imaging obtained. IV Contrast Dosage and Agent: 12 mL clariscan COMPARISON: CT dated 01/07/2019 FINDINGS: HEMISPHERES, CEREBELLUM AND BRAINSTEM: 1. The cerebral parenchyma, ventricular system, subarachnoid spaces have normal configuration and density. There is a normal gyral pattern. There is normal velasquez/white differentiation. No midline shift.. 2. 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 3. No areas fluid restriction or acute ischemic change. 4. No intraparenchymal mass, hemorrhage, or acute territorial infarct. 5. The cerebellum, brainstem, basilar and suprasellar cisterns have normal appearance. No Chiari malformation. 6. Normal appearance of the 7th and 8th cranial nerve complexes and IACs and membranous labyrinth. No masses or abnormal enhancement. Normal appearance of the middle ear cavities and mastoid air cells, no soft tissue or fluid accumulation. 7. No areas of abnormal intraparenchymal or extra-axial contrast enhancement. PIITUITARY: Infundibulum and pituitary have normal configuration. Midline structures appear normal. CSF SPACES: Appropriate for age. No hydrocephalus. Basal cisterns are patent. VESSELS: 1. There are normal flow voids noted in the great vessels at the skull base ORBITS AND PARANASAL SINUSES: 1. Both globes, extraocular muscles, optic nerves and retrobulbar fat appear unremarkable. 2. Paranasal sinuses are clear. BONY ELEMENTS: Bony elements of the cranial vault, facial skeleton and skull base have normal appearance. SCALP AND SOFT TISSUES: Normal appearance of the soft tissues of the scalp and the visualized face OTHER: None MRI/Brain W/WO Contrast IMPRESSION: 1. No intracranial mass, hemorrhage, or acute territorial infarct. 2. Diffuse involutional change and mild chronic microvascular deep white matter disease. 3. Normal appearance the 7th and 8th cranial nerve complexes, IACs and membranous labyrinth. No masses or abnormal enhancement. No evidence of soft tissue or fluid accumulation middle ear cavities or mastoid air cells. 4. No radiographically significant sinus disease. Electronically Signed: Joesph Santos MD at 23:51 EST ,
[2024-06-21 16:25] LABS: CREATININE FINGERSTICK < 1.0 mg/dL (0.55-1.02); EGFR FINGERSTICK > 60.0000 mL/min (>60)
== END | disposition home or self-care (01) ==
LOC: MRI 15:35
PROVIDERS: PCP Internal Medicine; Referring Provider Otolaryngology; Visit Provider Otolaryngology
DX: H90.3 Sensorineural hearing loss, bilateral (principal)
CPT/HCPCS: 70553; A9575

== ENCOUNTER → 2024-08-16 | Outpatient (CLI) | payer MEDICARE, OTHER, SELFPAY ==
[2024-08-16 15:53] LABS: Absolute Lymphocyte Count 1.77 X10^3/uL (0.83-4.51); Absolute Neutrophil Count 2.1 X10^3/uL (2.0-7.7); Basophil# 0.02 X10^3/uL; Basophil% 0.5 % (0-1); Eosinophil# 0.06 X10^3/uL; Eosinophils% 1.4 % (0-5); Hematocrit 36.8 % (37-47); Hemoglobin 11.8 g/dL (12.0-15.0); Lymphocyte # 1.77 X10^3/ul (0.83-4.51); Lymphocyte % 41.1 % (19-41); Mean Corp Hgb Conc 32.1 g/dL (32-36); Mean Corpuscular Hgb 30.1 pg (27.0-32.0); Mean Corpuscular Volume 93.9 fL (81-99); Mean Platelet Vol. 10.9 fl (6.2-12.0); Monocyte% 9.3 % (0-10); NRBC Flagged by Analyzer 0 % (0-5); Neutrophil # 2.05 X10^3/uL (2.7-7.7); Neutrophil % 47.5 % (47-70); Platelet Count 290 K/mm3 (150-450); RBC Distribution Width CV 13.7 % (11.6-14.6); Red Blood Count 3.92 M/mm3 (4.2-5.4); White Blood Count 4.3 K/mm3 (4.4-11.0)
[2024-08-16 16:46] LABS: AST(SGOT) 21 U/L (15-37); Alanine Aminotransfer ALT/SGPT 18 U/L (13-56); Albumin, Serum 3.9 g/dL (3.2-5.0); Alkaline Phosphatase 84 U/L (45-117); Anion Gap 4 (5-15); BUN 16 mg/dL (7-18); BUN/Creat Ratio 14.2 RATIO (10-20); Calcium,Total 8.7 mg/dL (8.5-10.1); Chloride 105 mmol/L (98-107); Creatinine, Serum 1.13 mg/dL (0.55-1.02); EST Glomerular Filtration Rate 50 mL/min (>60); Est Glom Filt Rate - Afr Amer 60 mL/min (>60); Globulin 3.9 g/dL (2.2-4.2); Glucose 91 mg/dL (74-106); Potassium 4.1 mmol/L (3.5-5.1); Protein, Total 7.8 g/dL (6.4-8.2); Sodium Level 136 mmol/L (136-145); Thyroid Stim Hormone (TSH) 0.909 uIU/mL (0.358-3.740)
== END | disposition home or self-care (01) ==
LOC: BIMLAB 14:12
PROVIDERS: PCP Internal Medicine; Referring Provider Internal Medicine; Visit Provider Internal Medicine
DX: E03.8 Other specified hypothyroidism (principal); E06.3 Autoimmune thyroiditis
CPT/HCPCS: 36415; 80053; 84443; 85025

== ENCOUNTER → 2024-08-18 | Outpatient (CLI) | payer MEDICARE, OTHER, SELFPAY ==
--- NOTE | 2024-08-18 09:53 | BI_ITS ---
MAMMOGRAPHY - BILATERAL SCREENING REASON FOR EXAM: Female, 78 years old. Routine annual screening examination. PERTINENT HISTORY: Mother with breast cancer. TECHNIQUE: Digital bilateral breast jessica (3D mammographic acquisition) in the CC and MLO projections. 2-D mediolateral oblique (MLO) and craniocaudad (CC) views of both breasts were obtained. CAD: Full Field Digital Mammography with Computer Added Detection was performed. COMPARISON: Comparison is made with prior study dated August 14, 2023 and August 09, 2021. FINDINGS: Breast Composition: The breasts are extremely dense, which lowers the sensitivity of mammography. There are no dominant masses or suspicious calcifications. No other significant abnormalities are identified. There has been no significant change since the prior study. BI/SCRN MAMM (CAD)W/JESSICA BILAT IMPRESSION: Stable bilateral screening mammogram. Yearly follow-up mammogram recommended. (A) ASSESSMENT CATEGORY: BIRADS Category 1: Negative. A letter regarding these results will be sent to the patient by the facility within 30 days. Approximately 10% of breast cancers are not detected by mammography. A normal mammogram should not delay biopsy of a clinically suspicious abnormality. [id number] Electronically Signed: Bacilio Garcia MD at 10:34 EST ,
== END | disposition home or self-care (01) ==
LOC: OPBI 09:52
PROVIDERS: PCP Internal Medicine; Referring Provider Internal Medicine; Visit Provider Internal Medicine
DX: Z12.31 Encounter for screening mammogram for malignant neoplasm of breast (principal)
CPT/HCPCS: 77063; 77067

== ENCOUNTER → 2025-03-14 | Outpatient (CLI) | payer MEDICARE, OTHER, SELFPAY ==
[2025-03-16 15:08] LABS: Anti-dsDNA Ab <1 IU/mL (0-9)
== END | disposition home or self-care (01) ==
LOC: MTLAB 14:56
PROVIDERS: PCP Internal Medicine; Referring Provider Physician Assistant; Visit Provider Physician Assistant
DX: L93.0 Discoid lupus erythematosus (principal)
CPT/HCPCS: 36415; 86225

== ENCOUNTER → 2025-04-21 | Outpatient (CLI) | payer MEDICARE, OTHER, SELFPAY ==
[2025-04-21 17:38] LABS: Hematocrit 34.9 % (37-47); Hemoglobin 11.7 g/dL (12.0-15.0); Immature Granulocytes Count 0.010 X10^3/uL (0.0-0.0); Mean Corp Hgb Conc 33.5 g/dL (32-36); Mean Corpuscular Volume 90.4 fL (81-99); Mean Platelet Vol. 10.7 fl (6.2-12.0); NRBC Flagged by Analyzer 0 % (0-5); Platelet Count 267 K/mm3 (150-450); RBC Distribution Width CV 14.3 % (11.6-14.6); RBC Distribution Width SD 47.2 fl (35.1-43.9); Red Blood Count 3.86 M/mm3 (4.2-5.4); White Blood Count 4.0 K/mm3 (4.4-11.0)
[2025-04-21 18:28] LABS: AST(SGOT) 26 U/L (<=31); Alanine Aminotransfer ALT/SGPT 16 U/L (<=34); Albumin, Serum 4.3 g/dL (3.4-4.8); Alkaline Phosphatase 81 U/L (35-104); Anion Gap 13 (5-15); BUN 14 mg/dL (4-19); BUN/Creat Ratio 16.7 RATIO (10-20); Calcium,Total 9.6 mg/dL (7.6-11.0); Carbon Dioxide 24.6 mmol/L (21.0-32.0); Chloride 99 mmol/L (98-108); Ferritin 529 ng/mL (22-378); Globulin 3.1 g/dL (2.2-4.2); Glucose 74 mg/dL (70-99); Iron 51 ug/dL (50-170); Iron Binding Capacity,Total 254 ug/dL (250-450); Iron Binding Capacity,Unsat 203 ug/dL (228-428); Potassium 4.1 mmol/L (3.3-5.1); Vitamin D,25 Hydroxy 56.1 ng/mL (30-100)
[2025-04-22 13:09] LABS: Vitamin B12 999 pg/mL (180-914)
[2025-04-22 13:16] LABS: CRP < 3.00 mg/L (0.0-3.0)
[2025-04-25 15:08] LABS: ANTINUCLEAR ANTIBODIES DIRECT Negative (Negative)
== END | disposition home or self-care (01) ==
LOC: MTLAB 15:41
PROVIDERS: PCP Internal Medicine; Referring Provider Internal Medicine; Visit Provider Internal Medicine
DX: E03.8 Other specified hypothyroidism (principal); E06.3 Autoimmune thyroiditis; M85.80 Other specified disorders of bone density and structure, unspecified site; L93.0 Discoid lupus erythematosus; D50.9 Iron deficiency anemia, unspecified
CPT/HCPCS: 36415; 80053; 82306; 82607; 82728; 83540; 83550; 84443; 85025; 85652; 86038; 86140; 86225

== ENCOUNTER 2025-05-24 16:00 | Outpatient (RCR) | payer MEDICARE, OTHER, SELFPAY ==
--- NOTE | 2025-04-14 18:35 | HP.PTEVAL ---
Patient's Visit Information Visit Information Visit Information: ADILENE ANDREWS is a 79 year old F referred to Physical Therapy by Dr. Silver Grace MD with a diagnosis of BPPV. Date of Evaluation: 04/14/25 Physical Therapist: Silver Calix, DPT, OCS, CSCS Visit Plan Frequency: 1-2x /Week Duration: 2-4 Weeks Plan: 1-2x/week for 2-4 as needed for monitor L positional and treat with techniques/ex as needed. Return to [facility] activity + L HD today and treated x 2. Subjective Subjective: Got dizzy again. Has hearing trouble in L ear which is her only good ear. 3 weeks ago she had a tube put in ear to hear better and started getting dizzy shortly thereafter. Presents as lying down or standing and gets spinning feeling and lasts for a short bit. Looking up does it also. In between feels not with it since this happened. sleep is not a problem. Sleeps in bed and consistent spinning with lying. Activities during day: avoids looking up and sudden head movements, avoided looking up in closet to reach up. No falls, balance feels OK when not spinning. Objective Objective: Walks into PT I without gait deviations. Trasnfer chair and bed I, rolls well. cervical aROM WFL adn no pain but hesitant to look up. Especially while walking. UE AROM WFL and sensation WFL B to gross light touch. - R HD + L HD for up torsional nystagmus of 15 seconds adn spin, tr\eated with L maryan adn then much better. Treated 2x/today adn walked out feeling OK and good balance. Balance/Special Test Scores Functional Gait Assessment Score: 28 % Disability: 6.6700 Dizziness Score: 44 Goals Goal 1:: abolish vertigo with lying down/sitting up Goal Time Frame: 2-4 Weeks Goal 2:: Look up into cupboards and at people without hesitation Goal Time Frame: 2-4 Weeks Goal 3:: Pt feel 100% better with dizziness Goal Time Frame: 2-4 Weeks Goal 4:: DHI score 4 or bettere Goal Time Frame: 2-4 Weeks Rehabilitation Potential Physical Therapy Diagnosis: likely BPPV causing spinning and fucnitonal deficits with fear with activity Rehabilitation Potential: Good Anticipated Interventions Patient/Client Instruction: Educate patient on: Condition and Plan of Care For the Purpose of:: To increase tolerance to activity/condition/position Therapeutic Exercise to Include: Balance training Comment: positional For the Purpose of:: To increase tolerance to activity/condition/position Text: Thank you for the opportunity to evaluate your patient. For Medicare and Medicare HMO plans, please review the plan of care and approve it. It will need to be FAXED BACK to us at [phone] for Medicare purposes. For Medicare only, by signing this I certify the plan of care. Please let me know if there are questions or concerns regarding this plan of care. Physician Signature: Date:
--- NOTE | 2025-05-09 12:57 | HP.PTREVAL ---
Re-Evaluation Intro: Dr. Silver Grace MD, It has been my pleasure to treat ADILENE ANDREWS over the last 6 visits for BPPV. Please see the progress note below for an update on the physical therapy plan of care! Subjective Subjective: Main dizzyness is now with lying down or geetting up inconsistently described as lightheadedness more than spinning. Gone quickly. Doing HEP regularly, not causing symptoms much. Mostly is up and down movement now. To doctor next week. Objective Objective/Function: + L geoptropic nystagmus L eye with L roll. BBQ roll no change Walking well but still getting symptoms with position change up and down. AlsoHC nystagmus intermittently L eye(R eye is lazy) Plan Plan Plan: pt to doctor next weeek due to up and down nature of improvement adn will call or f/u after asneeded. Balance/Gait/Functional tests Balance/Special Test Scores Functional Gait Assessment Score: 28 % Disability: 6.6700 Dizziness Score: 44 Goals Goals Goal 1:: abolish vertigo with lying down/sitting up Goal Time Frame: 2-4 Weeks Goal Progress: 90% Goal 2:: Look up into cupboards and at people without hesitation Goal Time Frame: 2-4 Weeks Goal Progress: 50% better Goal 3:: Pt feel 100% better with dizziness Goal Time Frame: 2-4 Weeks Goal Progress: 50% Goal 4:: DHI score 4 or bettere Goal Time Frame: 2-4 Weeks Anticipated Interventions Anticipated Interventions Patient/Client Instruction: Educate patient on: Condition and Plan of Care For the Purpose of:: To increase tolerance to activity/condition/position Therapeutic Exercise to Include: Balance training Comment: positional For the Purpose of:: To increase tolerance to activity/condition/position Re-Evaluation Ending Re-evaluation ending: Please do not hesitate to contact me at [phone] by phone or if you have questions or concerns regarding this new plan of care! Sincerely, Silver Calix, DPT, OCS, CSCS
--- NOTE | 2025-05-17 13:51 | HP.PTREVAL ---
Re-Evaluation Intro: Dr. Silver Grace MD, It has been my pleasure to treat ADILENE ANDREWS over the last 7 visits for BPPV. Please see the progress note below for an update on the physical therapy plan of care! Subjective Subjective: last week was just slightly in am, felt unsteady on , felt like she heard breeziness in ar. Friday was good until sister did treatment and had a number of good days since then. Walks and machines at [facility] 3x/week. Saw Dr. Grace yesterday, wants continue monitorring of BPPV as he suspeects HC BPPV. Havent had dizzyneess lying down at night. Objective Objective/Function: - B hallpikee gerald - B rollt test, solid eyees today adn no ny stagmus either eeye. Overall better adn going thee right way but stubborn, still, no positivee tests today and neew POC will be to monitor neeed for positional if symptoms return but otherwise wean off of therapy to 100% improvement. Good prognosis. goals still appropriate for four more weeks POC of stubborn BPPV trasnferred to HC. Plan Plan Plan: weekly x 2-4 more as needed to montior and treat per doctor recommeendation for HC BPPV Balance/Gait/Functional tests Balance/Special Test Scores Functional Gait Assessment Score: 28 % Disability: 6.6700 Dizziness Score: 44 Goals Goals Goal 1:: abolish vertigo with lying down/sitting up Goal Time Frame: 2-4 Weeks Goal Progress: 80% Goal 2:: Look up into cupboards and at people without hesitation Goal Time Frame: 2-4 Weeks Goal Progress: Goal Met Goal 3:: Pt feel 100% better with dizziness Goal Time Frame: 2-4 Weeks Goal Progress: 80 Goal 4:: DHI score 4 or bettere Goal Time Frame: 2-4 Weeks Anticipated Interventions Anticipated Interventions Patient/Client Instruction: Educate patient on: Condition and Plan of Care For the Purpose of:: To increase tolerance to activity/condition/position Therapeutic Exercise to Include: Balance training Comment: positional For the Purpose of:: To increase tolerance to activity/condition/position Re-Evaluation Ending Re-evaluation ending: Please do not hesitate to contact me at [phone] by phone or if you have questions or concerns regarding this new plan of care! Sincerely, Silver Calix, DPT, OCS, CSCS
--- NOTE | 2025-05-24 16:20 | HP.PTDCSUM ---
Discharge Summary D/C summary: It has been my pleasure to treat ADILENE ANDREWS referred by Dr. Silver Grace MD, with the diagnosis of BPPV for a total of 8 visit(s). Discharge Date: 05/24/25 Please see the following information for a summary of their discharge status. Subjective Subjective: No problem with dizzyness. Feels yucky in had now and then. No pattern to it. Doing well. Overall Improvement % Improvement: 90 Objective Objective/Function: Good balance today and no dizzyness. Small complaints of goofy feeling now and then but no pattern adn doctor jose alberto aware. Goals Goal 1:: abolish vertigo with lying down/sitting up Goal Progress: 90 Goal 2:: Look up into cupboards and at people without hesitation Goal Progress: Goal Met Goal 3:: Pt feel 100% better with dizziness Goal Progress: 90 Goal 4:: DHI score 4 or bettere Goal Progress: Goal Met Plan Plan: d/c D/C Information d/c sentence: If there are questions or concerns regarding this patient's physical therapy, please feel free to call me at [phone]. Thank you for the referral of this patient. Sincerely, Silver Calix, DPT, OCS, CSCS Balance/Gait/Functional tests Balance/Special Test Scores Functional Gait Assessment Score: 28 % Disability: 6.6700 Dizziness Score: 0 Improvement % Improvement: 90
== END 2025-05-24 19:00 | disposition home or self-care (01) ==
LOC: PT 16:00
PROVIDERS: PCP Internal Medicine; Referring Provider Otolaryngology; Visit Provider Otolaryngology
DX: H81.12 Benign paroxysmal vertigo, left ear (principal)
CPT/HCPCS: 97161; 97530